=== PATIENT | male | born 1960 | race Caucasian/White ===

== ENCOUNTER → 2020-05-10 15:37 | Outpatient (BNVA) | payer OTHER, SELFPAY | PROVIDERS: PCP Internal Medicine; Visit Provider Hospitalist | DX: J44.9 Chronic obstructive pulmonary disease, unspecified (principal); Z79.899 Other long term (current) drug therapy | CPT/HCPCS: 99214 ==

== ENCOUNTER → 2021-05-29 09:18 | Outpatient (BNVA) | payer OTHER, SELFPAY | PROVIDERS: PCP Internal Medicine; Visit Provider Hospitalist | DX: J45.909 Unspecified asthma, uncomplicated (principal); K21.9 Gastro-esophageal reflux disease without esophagitis; Z87.891 Personal history of nicotine dependence | CPT/HCPCS: 99212 ==

== ENCOUNTER 2022-05-10 10:53 | Outpatient (REF) | payer OTHER, SELFPAY ==
--- NOTE | 2022-05-10 15:05 | PFT_ITS ---
Forced vital capacity 87%, FEV1 88%, FEF25/75 87%, MVV 74%. Post bronchodilator therapy, there is no significant change. Total lung capacity 88%. Residual volume 85%. Diffusion capacity 63% CONCLUSION: Normal pulmonary function test except for slight decrease in MVV and diffusion capacity. No evidence of obstructive or restrictive pulmonary disorder. Decreased MVV, probably due to poor effort or some muscular weakness. Decreased diffusion capacity, may be due to nonspecific factors including technical, nonpulmonary issues such as pulmonary vascular disease. Clinical correlation is recommended. MD ERIK Ya/MODL / [id number]
== END 2022-05-10 10:54 | disposition home or self-care (01) ==
LOC: HO.RESP 10:53
PROVIDERS: Visit Provider Hospitalist
DX: J45.909 Unspecified asthma, uncomplicated (principal)
CPT/HCPCS: 94060; 94727; 94729

== ENCOUNTER → 2022-05-30 11:32 | Outpatient (BNVA) | payer OTHER, SELFPAY | PROVIDERS: PCP Internal Medicine; Visit Provider Hospitalist | DX: J45.909 Unspecified asthma, uncomplicated (principal); R91.8 Other nonspecific abnormal finding of lung field; K21.9 Gastro-esophageal reflux disease without esophagitis | CPT/HCPCS: 99212 ==

== ENCOUNTER 2022-06-13 09:14 | Outpatient (REF) | payer OTHER, SELFPAY ==
--- NOTE | ~2022-06-13 | CT_ITS ---
EXAMINATION: CT CHEST WITHOUT CONTRAST CLINICAL INFORMATION: Abnormal findings of the lung shah. COMPARISON: None TECHNIQUE: Multidetector volumetric CT imaging of the chest was done. Axial MIP volume rendering provided. Sagittal and coronal reformatted images were obtained. This CT examination was performed using dose optimization techniques as appropriate, variously including the following: *Automated exposure control *Adjustment of mA and/or kV according to patient size (this includes techniques or standardized protocols for targeted exams where dose is matched to indication/reason for exam; i.e. extremities or head) *Use of iterative reconstruction technique DLP: 165 mGy-cm FINDINGS: VIDEOGRAPHER: Unremarkable chest. LUNGS: The lungs are well-expanded with 2 mm peripheral subpleural right upper lobe nodule, axial image 278/7, 2 mm subpleural nodule left lower lobe, axial image 389/7, and new 3 mm nodule right lower lobe with linear atelectatic changes on axial image 378/7. No additional lung nodules are seen. Minimal dependent atelectatic changes are seen in both lung bases. MEDIASTINUM: The thyroid lobes are symmetric and normal. The central trachea and the bronchi are widely patent. Heart size and the great vessels are normal caliber. No abnormal size mediastinal or hilar lymph nodes seen. CORONARY ARTERY CALCIFICATION: Trace coronary artery calcifications are seen. PLEURA: There is no pleural effusion. No pleural mass or thickening. AXILLA: No lymphadenopathy. UPPER ABDOMEN: Visualized liver, spleen, pancreas and bilateral adrenal glands are unremarkable. No radiopaque gallstone seen. OSSEOUS STRUCTURES: There is a healing fracture with sclerosis left lateral 7th rib CT/CT chest wo IV con IMPRESSION: 1. Bilateral subpleural nodules. There is a new 3 mm pulmonary nodule in right lower lobe. 2. Minimal dependent atelectatic changes seen in both lung bases. Fleischner guidelines were followed.
== END 2022-06-13 09:15 | disposition home or self-care (01) ==
LOC: HO.CT 09:14
PROVIDERS: Visit Provider Hospitalist
DX: R91.8 Other nonspecific abnormal finding of lung field (principal)
CPT/HCPCS: 71250

== ENCOUNTER 2023-03-20 10:05 | Outpatient (AMB) | payer OTHER, SELFPAY ==
[2023-03-20 10:09] VITALS: BP 122/70; PULSE 81; O2SAT 99; BMI 25.9
--- NOTE | 2023-03-20 10:09 | A.OFFVIS_ITS ---
Intake Vital Signs 03/20/23 10:09 Height 5 ft 10 in Weight 180 lb 12.465 oz BMI 25.9 BP 122/70 Blood Pressure Location Lt brachial Position Sitting Pulse 81 Pulse Source Pulse Oximeter Pulse Oximetry (%) 99 Oxygen Delivery Method Room Air Intake Visit Reasons: productive cough Allergies No Known Allergies Allergy (Verified 03/20/23 10:13) Medication List - Last Reconciled 03/20/23 by Randee Ronquillo LPN albuterol sulfate 90 mcg/actuation 2 puffs PO Q6H PRN azithromycin 500 mg PO DAILY 5 days azithromycin For 250 mg dose pack: take 500 mg today (day 1), then 250 mg for 4 days (days 2-5) PO budesonide mg inhalation BID cetirizine 10 mg PO DAILY famotidine 20 mg PO DAILY Flovent HFA 220 mcg/actuation (fluticasone propionate) 2 puffs inhalation BID NS ibuprofen mg PO tamsulosin 0.4 mg PO DAILY HPI productive cough HPI Details Stevenson is a pleasant 62 year old male, former smoker, followed for asthma, GERD, allergic rhinitis and pulmonary nodules. He is well controlled on Flovent, Zyrtec, Pepcid and albuterol PRN. Previously on suppressive therapy for chronic bronchitis and recurrent pneumonia. Today he presents for an acute visit. He initially started with nasal congestion about three days ago and now with worsening productive cough and green sputum. He denies any shortness of breath, chest tightness or wheezing. He denies any hemoptysis or chest pain. He denies any fever, chills or known sick contacts. Of note, he was recently admitted to [facility] with cellulitis s/p cat bite and treated with IV antibiotics x 4 days then discharged on 10 day course of Augmentin early February. [facility] Medical History (Updated 05/30/22 @ 12:00 by Neal Molina MD) Allergic rhinitis Asthma Asthma-COPD overlap syndrome Bronchitis GERD (gastroesophageal reflux disease) Pulmonary nodules Family History (Updated 05/10/20 @ 20:55 by Neal Molina MD) Other Asthma Social History (Updated 03/20/23 @ 10:18 by Randee Ronquillo LPN) Patient Tobacco Use Status: Former Tobacco user Tobacco use type: Cigarette Years Smoked: 10 years Smoked in Last 30 Days: No Review of Systems Const Denies chills, Denies excessive sweating, Denies fever(s), Denies headache(s) and Denies night sweats Eyes Denies dry eyes, Denies irritation and Denies itchy eyes ENT Reports Normal hearing present, Denies headache(s), Denies nasal congestion, Denies nasal discharge, Denies post nasal drip and Denies sore throat Card Denies chest pain, Denies chest pain at rest, Denies chest pain with activity, Denies claudication, Denies leg edema, Denies dyspnea, Denies dyspnea on exertion, Denies orthopnea and Denies paroxysmal nocturnal dyspnea Resp Denies chest congestion, Denies cough, Denies excessive phlegm production, Denies pain on inspiration, Denies pain with cough, Denies dyspnea, Denies dyspnea on exertion, Denies stridor and Denies wheezing Musc Denies myalgias Neuro Reports Normal hearing present and Denies headache(s) Endo Denies excessive sweating Seymour/Lymph Denies lymphadenopathy Aller/Immun Denies itchy eyes, Denies seasonal rhinorrhea and Denies wheezing Physical Exam Vital Signs: Last Vital Signs Pulse 81 03/20/23 10:09 BP 122/70 03/20/23 10:09 Pulse Ox 99 03/20/23 10:09 Oxygen Delivery Method Room Air 03/20/23 10:09 BMI result Body Mass Index 25.9 Const General: cooperative, healthy appearing, comfortable, no acute distress, well developed and alert Orientation/consciousness: patient oriented x3 Limitations: no limitations HEENT Head: Yes normal to inspection, Yes normocephalic and Yes atraumatic Ears: hearing grossly normal bilaterally and external ears normal Eyes General: appearance normal, both eyes and all related structures Eyelids: Yes eyelids normal Sclerae: sclerae normal EOM: EOMs intact bilaterally Neck Neck: Yes normal visual inspection and Yes no lymphadenopathy Lymphatic: no lymphadenopathy noted Chest Chest palpation & inspection: normal inspection of the chest Resp Effort & Inspection: normal respiratory effort, able to speak in complete sentences, no audible wheezes, no cough, no stridor, not tachypneic, no tripod positioning and no use of accessory muscles Auscultation: rhonchi throughout and wheezes (faint) expiratory wheezes Cardio Jugular venous distension: no JVD Rate: regular rate Rhythm: regular rhythm Skin Other: warm, dry General skin exam: no rashes or lesions noted Neuro General: patient oriented x3 Cranial nerves: Yes Normal hearing present Cognition (Neuro): normal cognition Gait exam (Neuro): Normal gait present Extrem General: Yes normal to inspection, Yes capillary refill normal, Yes no clubbing, cyanosis or edema and Yes no pedal edema Psych Appearance: grossly normal and well kempt Speech and movement: Normal speech and movement present and Clear speech present Affect: normal affect Attitude: cooperative Thought process: Normal thought process present Thought content: Normal thought content present Insight: Good insight present (Psych) Judgement: Good judgement present (Psych) Assessment & Plan Assessment & Plan (1) Asthma: Code(s): J45.909 - Unspecified asthma, uncomplicated (2) Bronchitis: Code(s): J40 - Bronchitis, not specified as acute or chronic Plan Will treat bronchitic symptoms with azithromycin. He did have faint wheezing on exam but declines prednisone at this time. He is aware to contact the office if symptoms do not improve or seek emergent care if they worsen. Will have PFT and chest CT in the fall then follow up with Dr. Molina to review results. All questions were answered and patient is in agreement of plan. Medications: Refilled azithromycin 500 mg PO DAILY 5 days 5 tabs 0RF albuterol sulfate 90 mcg/actuation 2 puffs PO Q6H PRN 1 ea 3RF wheezing Coding Level of Care Code Est Pt Level 3 (66313) Diagnoses Asthma J45.909 Bronchitis J40
== END 2023-03-20 11:49 | disposition home or self-care (01) ==
PROVIDERS: PCP Internal Medicine; Visit Provider Nurse Practitioner Family
DX: J45.909 Unspecified asthma, uncomplicated (principal)
CPT/HCPCS: 99213

== ENCOUNTER → 2023-03-20 10:05 | Outpatient (BNVA) | payer OTHER, SELFPAY | PROVIDERS: PCP Internal Medicine; Visit Provider Nurse Practitioner Family | DX: J40 Bronchitis, not specified as acute or chronic (principal); R91.8 Other nonspecific abnormal finding of lung field; Z87.891 Personal history of nicotine dependence | CPT/HCPCS: 99212 ==

== ENCOUNTER 2023-05-31 11:25 | Outpatient (REF) | payer OTHER, SELFPAY ==
--- NOTE | 2023-05-31 12:21 | PFT_ITS ---
INDICATION: Asthma. SPIROMETRY: The FEV1 to FVC pre-bronchodilator 69%, post-bronchodilator 71% with an FEV1 of 3.18 L, which is 111% predicted and FVC of 4.49 L, which is 108% of predicted. There was a trend response to bronchodilators noted. The maximum voluntary ventilation is 86% predicted. LUNG VOLUMES: Total lung capacity 77% predicted with residual volume of 58% predicted. DIFFUSION CAPACITY: DLCO 73% predicted. COMPARISONS: None available. INTERPRETATION: There appears to be partially reversible obstructive ventilator defect consistent with diagnosis of asthma. There is trend response to bronchodilators noted, and there is normal maximum voluntary ventilation. Lung volumes also demonstrate restrictive ventilatory defect consistent with mild restrictive lung disease. In addition, there is mild diffusion impairment, clinical correlation warranted. Neal Molina MD MR/MODL / [id number]
== END 2023-05-31 11:26 | disposition home or self-care (01) ==
LOC: HO.RESP 11:25
PROVIDERS: PCP Internal Medicine; Visit Provider Hospitalist
DX: J45.909 Unspecified asthma, uncomplicated (principal)
CPT/HCPCS: 94010; 94727; 94729

== ENCOUNTER → 2023-05-31 12:21 | Outpatient (BNV) | payer OTHER, SELFPAY | PROVIDERS: PCP Internal Medicine; Visit Provider Hospitalist | DX: J45.909 Unspecified asthma, uncomplicated (principal) | CPT/HCPCS: 94060; 94727; 94729 ==

== ENCOUNTER 2023-06-12 11:12 | Outpatient (REF) | payer OTHER, SELFPAY ==
--- NOTE | ~2023-06-12 | CT_ITS ---
EXAMINATION: CT CHEST WITHOUT CONTRAST CLINICAL INFORMATION: Abnormal findings lung field COMPARISON: Previous, most recent, 06/13/2022 TECHNIQUE: Multidetector volumetric CT imaging of the chest was done. Axial MIP volume rendering provided. Sagittal and coronal reformatted images were obtained. This CT examination was performed using dose optimization techniques as appropriate, variously including the following: *Automated exposure control *Adjustment of mA and/or kV according to patient size (this includes techniques or standardized protocols for targeted exams where dose is matched to indication/reason for exam; i.e. 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 Other than small groundglass focus in the lateral left upper lobe, 5:263, the lungs are clear. No consolidations. 2 mm RUL subpleural nodule, 5:252, 2 mm LLL subpleural, 5:339 are unchanged. 3 mm RLL nodule with linear atelectasis, 5:344 is stable. MEDIASTINUM: Unremarkable thyroid. No pathologic lymphadenopathy. Nonenlarged heart. No pericardial effusion. Nonaneurysmal aorta with atherosclerotic calcifications. Nonenlarged pulmonary arteries. CORONARY ARTERY CALCIFICATION: Mild. PLEURA: There is no pleural effusion. No pleural mass or thickening. AXILLA: No lymphadenopathy. UPPER ABDOMEN: Unremarkable. OSSEOUS STRUCTURES: Old left seventh lateral rib fracture. Unchanged right-sided T5 sclerotic focus. CT/CT chest wo IV con IMPRESSION: Stable lung nodules. No new or enlarging lesions.
== END 2023-06-12 11:13 | disposition home or self-care (01) ==
LOC: HO.CT 11:12
PROVIDERS: PCP Internal Medicine; Visit Provider Hospitalist
DX: R91.8 Other nonspecific abnormal finding of lung field (principal)
CPT/HCPCS: 71250

== ENCOUNTER 2023-07-15 09:40 | Emergency (ER) | payer OTHER, SELFPAY ==
--- NOTE | ~2023-07-15 | XR_ITS ---
EXAMINATION: XR TIBIA AND FIBULA, RIGHT CLINICAL INFORMATION: Right lower leg laceration. COMPARISON: None available. TECHNIQUE: AP and lateral views of the right tibia and fibula were obtained. FINDINGS: Alignment is anatomic. No displaced fracture or dislocation. No periosteal reaction or bone destruction. No retained radiopaque foreign body. There is mild diffuse subcutaneous edema and soft tissue swelling. XR/XR tibia fibula RT 2V IMPRESSION: Finding suggestive of cellulitis. No underlying bone destruction.
[2023-07-15 10:01] VITALS: BP 137/91; PULSE 64; RESP 20; TEMP 36.6; O2SAT 95; BMI 26.4
--- NOTE | 2023-07-15 11:09 | ED.GENADULT ---
HPI - General Adult General Chief complaint: Extremity Injury, Lower Stated complaint: R leg infected wound Time Seen by Provider: 07/15/23 10:47 Source: patient Mode of arrival: ambulatory Limitations: no limitations History of Present Illness HPI narrative: 62 yold male with pmh of asthma , GERD, pulmonary nodules presents to the ED for right leg area of redness after being cut by a chair. Patient denies any calf pain, chest pain, shortness of breath, recent long travel, or recent surgery. Patient denies any history of diabetes. Related Data Home Medications Medication Instructions Recorded Confirmed ibuprofen 600 mg tablet mg PO 05/02/20 03/20/23 tamsulosin 0.4 mg capsule 0.4 mg PO DAILY 05/02/20 03/20/23 budesonide 0.5 mg/2 mL suspension mg inhalation BID 05/10/20 05/10/20 for nebulization Previous Rx's Medication Instructions Recorded azithromycin 250 mg tablet See Rx Instructions PO .COMPLEX #6 11/22/22 tabs cetirizine 10 mg tablet 10 mg PO DAILY #90 tabs 01/14/23 Ventolin HFA 90 mcg/actuation 2 puff PO Q6H PRN wheezing #18 03/20/23 aerosol inhaler (albuterol sulfate) grams azithromycin 500 mg tablet 500 mg PO DAILY 5 days #5 tabs 03/20/23 Flovent HFA 220 mcg/actuation 2 puff inhalation BID #36 ea 05/16/23 aerosol inhaler (fluticasone propionate) famotidine 20 mg tablet 20 mg PO DAILY #90 tabs 06/06/23 cephalexin 500 mg capsule 500 mg PO QID 7 days #28 caps 07/15/23 doxycycline hyclate 100 mg capsule 100 mg PO BID 7 days #14 caps 07/15/23 Allergies Allergy/AdvReac Type Severity Reaction Status Date / Time No Known Allergies Allergy Verified 07/15/23 10:05 Review of Systems Review of Systems: Right leg laceration with surrounding erythema Yes all other systems are reviewed and are negative [facility] Past Medical History Medical History (Updated 07/15/23 @ 12:47 by KULWINDER Altman) Pulmonary nodules GERD (gastroesophageal reflux disease) Allergic rhinitis Asthma Bronchitis Asthma-COPD overlap syndrome Family History Family History (Updated 05/10/20 @ 20:55 by Neal Molina MD) Other Asthma Social History Social History (Updated 03/20/23 @ 10:18 by Randee Ronquillo LPN) Patient Tobacco Use Status: Former Tobacco user Tobacco use type: Cigarette Years Smoked: 10 years Advance Directives: No Advance Directives Information Provided: Yes Physical Exam ED Vital Signs: Vital Signs - 24 hr 07/15/23 10:01 07/15/23 13:12 Temperature 97.8 F 97.9 F Pulse Rate 64 56 Respiratory Rate 20 15 Blood Pressure 137/91 H 146/81 H Pulse Oximetry 95 95 Oxygen Delivery Method Room Air Room Air BMI result Body Mass Index 26.4 Const General: cooperative, healthy appearing, comfortable and no acute distress Orientation/consciousness: oriented to place, oriented to time and patient oriented x3 HENMT Head: Yes normal to inspection, Yes No palpable skull fracture present, Yes normocephalic and Yes atraumatic Eyes General: appearance normal, both eyes and all related structures Neck Neck: Yes normal visual inspection, Yes full ROM, Yes no lymphadenopathy, Yes no meningeal signs, Yes trachea midline, Yes supple, No anterior neck swelling and No tender Chest Chest palpation & inspection: normal inspection of the chest and normal palpation of entire chest wall Resp Effort & Inspection: normal respiratory effort and able to speak in complete sentences Auscultation: clear to auscultation bilaterally Cardio Jugular venous distension: no JVD Heart sounds: S1 normal heart sound present and S2 normal heart sound present GI Inspection: Yes normal to inspection and No abdominal wall ecchymosis Palpation (GI): Soft to palpation, not firm, nontender, no guarding and not rigid General: Yes no CVA tenderness Back/Spine/Pelvis Back: no CVA tenderness and No back tenderness Skin Other: skin tear Neuro General: oriented to place, oriented to time, patient oriented x3, gait normal, tone normal, moves all extremities, Normal light touch and pain sensation, no meningeal signs, no focal motor deficits, CN's II-XI intact bilaterally and normal sensation to monofilament Extrem Other: skin tear laceration from trauma caused by chair with surrounding erythema and some small amount of yellow drainage / serosanguineous. Negative for leg pain, calf pain, or leg swelling. Motor/ neuro/vascular exam intact General: Yes normal to inspection and Yes full ROM Psych Appearance: grossly normal, well kempt and not disheveled Medical Decision Making Medical Decision Making MDM Narrative: 62-year-old male history of asthma, bronchitis, pulmonary nodule presents to the ED for area of erythema and slight discharge around skin tear that was caused by being cut by a chair a couple days ago. Patient states up-to-date with Tdap. Vital signs stable. X-ray ordered. Most likely patient will be need antibiotics. 12:42pm: x-ray negative for osteomyelitis. X-ray show signs of cellulitis. marker used to [place] around the area of cellulitis patient informed to return to the ED immediately if redness spread beyond marker. Patient also informed to return to ED if there is any leg swelling, worsening pain, red streaks, gangrene black discoloration, profuse discharge, calf pain, chest pain, shortness of breath, or any other concerning symptoms. Not suspecting DVT. Patient up-to-date with Tdap Differential Diagnosis Differential Diagnoses: The differential diagnosis associated with the presentation includes (Cellulitis, osteomylitis, DVT, fracture) Admission/Observation Consideration of admission/observation: Escalation of care including admission/observation considered Independent Interpretation I performed an independent interpretation of an: Plain X-Ray Radiology Impression Discussion of test interpretation with radiology: I have reviewed the radiologist's reading. Independent Historian Clinical information obtained from an independent historian. History obtained from or confirmed by: Spouse External Record Review External record reviewed: Other (Prior ED visits) Prescription Management I considered prescription management with: Antibiotic Discharge Plan Discharge Clinical Impression: Cellulitis Patient Disposition: Home, Self-Care Instructions: Cellulitis (ED), Warm Compress or Soak (ED) Additional Instructions: return to the ED immediately for any increased swelling, red streaks, worsening redness, bluish black discoloration, profuse discharge, fever, chills, calf pain, chest pain, shortness of breath, or any other concerning symptoms. Please follow-up with the primary care provider. Prescriptions: New cephalexin 500 mg capsule 500 mg PO QID 7 Days Qty: 28 0RF doxycycline hyclate 100 mg capsule 100 mg PO BID 7 Days Qty: 14 0RF No Action azithromycin 250 mg tablet See Rx Instructions PO .COMPLEX Qty: 6 0RF Rx Instructions: For 250 mg dose pack: take 500 mg today (day 1), then 250 mg for 4 days (days 2-5) PO cetirizine 10 mg tablet 10 mg PO DAILY Qty: 90 1RF albuterol sulfate [Ventolin HFA] 90 mcg/actuation HFA aerosol inhaler 2 puff PO Q6H PRN (Reason: wheezing) Qty: 18 3RF Flovent HFA 220 mcg/actuation HFA aerosol inhaler 2 puff inhalation BID Qty: 36 1RF famotidine 20 mg tablet 20 mg PO DAILY Qty: 90 1RF ibuprofen 600 mg tablet PO tamsulosin 0.4 mg capsule 0.4 mg PO DAILY budesonide 0.5 mg/2 mL suspension for nebulization inhalation BID azithromycin 500 mg tablet 500 mg PO DAILY 5 Days Qty: 5 0RF Stand Alone Forms: Work/School Release Interventions: ED Discharge Assessment Last Done: 07/15/23 13:13 Discharge Date/Time: 07/15/23 13:16 Print Language: Citizen [place]
[2023-07-15 13:12] VITALS: BP 146/81; PULSE 56; RESP 15; TEMP 36.6; O2SAT 95
== END 2023-07-15 13:16 | disposition home or self-care (01) ==
PROVIDERS: Emergency Provider Emergency Medicine; PCP Internal Medicine
DX: L03.115 Cellulitis of right lower limb (principal)
CPT/HCPCS: 73590; 99283

== ENCOUNTER 2023-07-17 11:18 | Emergency (ER) | payer OTHER, SELFPAY ==
--- NOTE | ~2023-07-17 | US_ITS ---
EXAMINATION: US VENOUS ULTRASOUND WITH DOPPLER LOWER EXTREMITY, RIGHT CLINICAL INFORMATION: Right lower extremity edema. COMPARISON: None available. TECHNIQUE: Ultrasound of the deep veins is performed from the hip to the calf with compression sonography and color and pulse Doppler assessment. Spectral analysis with color-flow imaging is performed. FINDINGS: There is normal venous compression and respiratory variation and augmented flow. The visualized common femoral vein, superficial femoral vein, profunda femoral vein, popliteal vein, and the trifurcation region shows no evidence of deep venous thrombosis. There is no significant popliteal fossa cyst. If the patient's symptoms persist, followup ultrasound in 5 days 7 days might be of value to exclude proximal propagation from a non-visualized calf vein. US/US venous duplex LE RT IMPRESSION: No DVT demonstrated in the right lower extremity.
--- NOTE | 2023-07-17 11:31 | ED_ITS ---
HPI - Extremity Injury (Lower) General Chief Complaint: General Medical Stated Complaint: Infection right leg Time Seen by Provider: 07/17/23 11:54 Source: patient Mode of arrival: ambulatory Limitations: no limitations History of Present Illness HPI Narrative: Patient is a 62 year old assigned male at with a history of asthma presenting to the emergency department today with possible worsening right lower extremity cellulitis. Patient states that he was seen 2 days ago and diagnosed with right lower leg cellulitis with a purple marker around the redness. Patient states that he was concerned the redness had gone past the line so he returned to the ED. Patient states that he is taking his antibiotic as prescribed. Patient denies any dizziness, lightheadedness, abdominal pain, nausea, vomiting, fever, chills, blurry vision, double vision, loss of vision, chest pain, difficulty breathing, shortness of breath, back pain, night sweats, pain with urination, increased urinary frequency, increased urinary urgency, blood in his urine or stool, syncope or a near syncopal episode, recent trauma or falls, bowel incontinence, bladder incontinence, bowel retention, bladder retention, or any other complaints at this time. Relieving factors: nothing Exacerbating factors: nothing Other symptoms: none Related Data Home Medications Medication Instructions Recorded Confirmed ibuprofen 600 mg tablet mg PO 05/02/20 03/20/23 tamsulosin 0.4 mg capsule 0.4 mg PO DAILY 05/02/20 03/20/23 budesonide 0.5 mg/2 mL suspension mg inhalation BID 05/10/20 05/10/20 for nebulization Previous Rx's Medication Instructions Recorded azithromycin 250 mg tablet See Rx Instructions PO .COMPLEX #6 11/22/22 tabs cetirizine 10 mg tablet 10 mg PO DAILY #90 tabs 01/14/23 Ventolin HFA 90 mcg/actuation 2 puff PO Q6H PRN wheezing #18 03/20/23 aerosol inhaler (albuterol sulfate) grams azithromycin 500 mg tablet 500 mg PO DAILY 5 days #5 tabs 03/20/23 Flovent HFA 220 mcg/actuation 2 puff inhalation BID #36 ea 05/16/23 aerosol inhaler (fluticasone propionate) famotidine 20 mg tablet 20 mg PO DAILY #90 tabs 06/06/23 cephalexin 500 mg capsule 500 mg PO QID 7 days #28 caps 07/15/23 doxycycline hyclate 100 mg capsule 100 mg PO BID 7 days #14 [facility] 07/15/23 Allergies Allergy/AdvReac Type Severity Reaction Status Date / Time No Known Allergies Allergy Verified 07/17/23 11:32 Review of Systems 2 Constitutional: Constitutional: Reports no additional constitutional complaints, Denies chills, Denies fever(s) and Denies night sweats Eyes: Eyes: Reports no additional eye complaints, Denies blurry vision, Denies change in vision, Denies diplopia, Denies eye discharge, Denies loss of vision and Denies eye pain ENT: Denies dizziness Cardiovascular: Cardiovascular: Reports no additional cardiovascular complaints, Denies chest pain, Denies lightheadedness, Denies Loss of Consciousness and Denies dyspnea Respiratory: Respiratory: Reports no additional respiratory complaints and Denies dyspnea Gastrointestinal: Gastrointestinal: Reports no additional gastrointestinal complaints, Denies abdominal pain, Denies melena, Denies hematochezia, Denies change in bowel habits and Denies change in stool character Genitourinary: Genitourinary: Reports no additional male genitourinary complaints, Denies hematuria, Denies oliguria, Denies difficulty urinating, Denies dysuria, Denies urinary frequency, Denies urinary hesitancy, Denies urinary incontinence and Denies urinary urgency Musculoskeletal: Musculoskeletal: Reports no additional musculoskeletal complaints, Denies numbness and Denies tingling Comments: right lower leg wound / infection Neurologic: Denies dizziness, Denies loss of vision, Denies numbness and Denies tingling Psychiatric: Psychiatric: Reports no additional psychiatric complaints Endocrine: Endocrine: Reports no additional endocrine complaints Hematologic/Lymphatic: Hematologic/Lymphatic: Reports no additional hematologic/lymphatic complaints Allergic/Immunologic: Allergic/Immunologic: Reports no additional allergic/immunologic complaints [facility] Past Medical History Attestation statement: The following information was validated with the patient. Source: old records reviewed and nursing notes reviewed Medical History Pulmonary nodules GERD (gastroesophageal reflux disease) Allergic rhinitis Asthma Bronchitis Asthma-COPD overlap syndrome Family History Family History Other Asthma Social History Social History (Updated 03/20/23 @ 10:18 by Randee Ronquillo LPN) Alcohol intake: current Patient Tobacco Use Status: Former Tobacco user Tobacco use type: Cigarette Years Smoked: 10 years Smoked in Last 30 Days: No Use of substances other than those prescribed or required for medical reasons: No Advance Directives: No Advance Directives Information Provided: Yes Physical Exam 2 Vital Signs: Vital Signs: Last Vital Signs Temp 97.9 F 07/17/23 11:32 Pulse 74 07/17/23 11:32 Resp 16 07/17/23 12:00 BP 147/98 H 07/17/23 11:32 Pulse Ox 95 07/17/23 11:32 O2 Del Method Room Air 07/17/23 12:00 BMI result Body Mass Index 24.8 Const: General: cooperative, no acute distress, alert and awake Nutritional Appearance: well nourished Orientation/consciousness: patient oriented x3 Limitations: no limitations HEENT: Head: Yes normal to inspection and Yes atraumatic Ears: hearing grossly normal bilaterally and external ears normal General nose exam: Normal external nose present, no nasal discharge noted and no epistaxis Face and sinus: Yes normal facial exam, No abrasion and No laceration Mouth: Normal oral and palatal mucosa present, no drooling and no muffled voice Eyes: General: appearance normal, both eyes and all related structures P eriorbital: periorbital findings normal Eyelids: Yes eyelids normal C onjunctivae: conjunctivae normal Pupils: Equal, round and reactive pupils present EOM: EOMs intact bilaterally Neck: Neck: Yes normal visual inspection, Yes full ROM and Yes no lymphadenopathy Chest: Chest palpation & inspection: normal inspection of the chest Resp: Effort & Inspection: normal respiratory effort and able to speak in complete sentences GI: Inspection: Yes normal to inspection Neuro: General: patient oriented x3 and moves all extremities Cranial nerves: Yes Equal, round and reactive pupils present Cognition (Neuro): n ormal cognition Motor exam (neuro): 5/5 motor strength present throughout Sensory Exam: Normal double simultaneous stimulation for sensation C oordination: [id number] test normal Extrem: Other: small wound to the right anterior lower leg with minimal surrounding erythema and warmth, all erythema is well within the drawn line General: Yes full ROM and Yes capillary refill normal Psych: Appearance: grossly normal Mental Status: mental status grossly normal Affect: normal affect Attitude: cooperative Thought process: N ormal thought process present Thought content: Normal thought content present Insight: Good insight present (Psych) Course Course Course Narrative: RME: 62 yo old male with PMHx of asthma, GERD, pulmonary nodules presents to the ED c/o worsening cellulitis, passing lines created in the ED on 07/15/23. patient was seen and tx in the ED 07/15 for cellulitis, tx w/Doxy & Keflex which he reports compliance. reports mild drainage. Also reports worsening edema. no fevers open wound noted to RLE w/surrounding erythema and slight drainage. +pitting edema. not passing lines created. suspect abx need more time, not failed outpatient Labs, Venous duplex US ordered Full HPI, ROS and PE to be performed by primary ED provider. Medical Decision Making Medical Decision Making [facility] Narrative: Patient is a 62 year old assigned male at with a history of asthma presenting to the emergency department today for possible worsening right lower extremity cellulitis. Patient's physical exam was as noted in the physical exam portion of this note. Patient's blood work was unremarkable. Patient's RLE US showed no acute process. I explained my physical exam findings as well as all test results to the patient. I answered all questions asked by the patient. I stressed the importance of the patient taking his medication as prescribed. I stressed the importance of the patient following up with his primary care provider and the wound center. I stressed the importance of the patient returning to the emergency department immediately if his symptoms were to worsen or if he were to develop any dizziness, shortness of breath, difficulty breathing, chest pain, blurry vision, loss of vision, nausea, vomiting, abdominal pain, fever, chills, back pain, or any other complaints. Patient verbalized agreement and understanding with this treatment plan and discharge. Differential Diagnosis Differential Diagnoses: The differential diagnosis associated with the presentation includes Cellulitis DVT Admission/Observation Consideration of admission/observation: Escalation of care including admission/observation considered Patient would have been admitted to the hospital had his work up had any findings where hospital admission was appropriate and his clinical presentation warranted hospital admission. Lab Data [facility] Lab Attestation statement: I reviewed the patient's lab results. My interpretation of these studies and their corresponding values is that they are grossly normal. 07/17/23 12:50 07/17/23 12:50 Labs: Lab Results 07/17/23 Range/Units 12:50 WBC 5.0 (4.8-10.8) X10*3/uL RBC 5.26 (4.60-5.80) X10*6/uL Hgb 17.4 (14.0-18.0) g/dl Hct 51.4 (42.0-52.0) % MCV 97.7 (80.0-98.0) fL MCH 33.1 H (27.0-33.0) pg MCHC 33.9 (31.0-36.0) g/dl RDW 13.2 (11.0-16.0) % Plt Count 237 (160-400) X10*3/uL MPV 11.0 (9.4-12.4) fL Immature Gran % (Auto) 1.0 H (0.0-0.4) % Neut % (Auto) 61.8 (45-73) % Lymph % (Auto) 18.1 L (20-40) % Pierce % (Auto) 16.7 H (2-11) % Eos % (Auto) 1.8 (0-4) % Baso % (Auto) 0.6 (0-2) % Lymph # (Auto) 0.9 L (1.2-4.9) X10*3/uL Pierce # (Auto) 0.8 (0.1-1.2) X10*3/uL Eos # (Auto) 0.1 (0.0-0.4) X10*3/uL Baso # (Auto) 0.0 (0.0-0.2) X10*3/uL Abs Immat Gran (auto) 0.05 H (0.00-0.03) X10*3/uL Absolute Neuts (auto) 3.1 (2.0-8.3) x10*3/uL Absolute Nucleated RBC 0.000 (0.0-0.012) X10*3/uL Nucleated RBC % (auto) 0.0 (0.0-0.2) /100WBC Sodium 140 (135-145) mmol/L Potassium 3.9 (3.3-5.1) mmol/L Chloride 107 (96-108) mmol/L Carbon Dioxide 26 (22-29) mmol/L Anion Gap 11 L (12-20) BUN 10 (9-16) mg/dL Creatinine 0.76 (0.5-1.4) mg/dL Estim Creat Clear Calc 101.3 Estimated GFR > 60 Random Glucose 96 (60-115) mg/dL Calcium 9.7 (8.4-10.2) mg/dL Total Bilirubin 0.5 (0.0-1.0) mg/dL AST 26 (5-37) U/L ALT 26 (0-40) U/L Alkaline Phosphatase 49 (39-117) U/L C-Reactive Protein 0.79 H (< or = 0.50) mg/dL Total Protein 7.1 (6.5-8.0) g/dL Albumin 3.8 (3.5-5.0) g/dL Independent Interpretation I performed an independent interpretation of an: Ultrasound Interpretation: My interpretation is in agreement with the radiologist's impression of this imaging study. - EXAMINATION: US VENOUS ULTRASOUND WITH DOPPLER LOWER EXTREMITY, RIGHT CLINICAL INFORMATION: Right lower extremity edema. COMPARISON: None available. TECHNIQUE: Ultrasound of the deep veins is performed from the hip to the calf with compression sonography and color and pulse Doppler assessment. Spectral analysis with color-flow imaging is performed. FINDINGS: There is normal venous compression and respiratory variation and augmented flow. The visualized common femoral vein, superficial femoral vein, profunda femoral vein, popliteal vein, and the trifurcation region shows no evidence of deep venous thrombosis. There is no significant popliteal fossa cyst. If the patient's symptoms persist, followup ultrasound in 5 days 7 days might be of value to exclude proximal propagation from a non-visualized calf vein. US/US venous duplex LE RT IMPRESSION: No DVT demonstrated in the right lower extremity. Dictated By: Nando Acevedo Signed By: Electronically signed by Nando Acevedo 07/17/23 1440 Radiology Impression Discussion of test interpretation with radiology: I have reviewed the radiologist's reading. Prescription Management I considered prescription management with: Antibiotic (patient already on antibiotics, recommended continuing them.) Discharge Plan Discharge Clinical Impression: Cellulitis Patient Disposition: Home, Self-Care Instructions: Cellulitis (DC) Additional Instructions: Continue taking your antibiotics as prescribed. Follow up with the wound center. Follow up with your primary care provider. Return to the emergency department immediately if your symptoms worsen or if you develop any dizziness, shortness of breath, difficulty breathing, chest pain, blurry vision, loss of vision, nausea, vomiting, abdominal pain, fever, chills, back pain, or any other complaints. Prescriptions: No Action azithromycin 250 mg tablet See Rx Instructions PO .COMPLEX Qty: 6 0RF Rx Instructions: For 250 mg dose pack: take 500 mg today (day 1), then 250 mg for 4 days (days 2-5) PO cetirizine 10 mg tablet 10 mg PO DAILY Qty: 90 1RF albuterol sulfate [Ventolin HFA] 90 mcg/actuation HFA aerosol inhaler 2 puff PO Q6H PRN (Reason: wheezing) Qty: 18 3RF Flovent HFA 220 mcg/actuation HFA aerosol inhaler 2 puff inhalation BID Qty: 36 1RF famotidine 20 mg tablet 20 mg PO DAILY Qty: 90 1RF cephalexin 500 mg capsule 500 mg PO QID 7 Days Qty: 28 0RF doxycycline hyclate 100 mg capsule 100 mg PO BID 7 Days Qty: 14 0RF ibuprofen 600 mg tablet PO tamsulosin 0.4 mg capsule 0.4 mg PO DAILY budesonide 0.5 mg/2 mL suspension for nebulization inhalation BID azithromycin 500 mg tablet 500 mg PO DAILY 5 Days Qty: 5 0RF Referrals: [facility] [Provider Group] (Call to establish and follow up with the wound center. ) Kee Ray MD [Primary Care Provider] - Interventions: ED Discharge Assessment Last Done: 07/17/23 13:51 Discharge Date/Time: 07/17/23 13:53 Print Language: Greenlandic
[2023-07-17 11:32] VITALS: BP 147/98; PULSE 74; RESP 18; TEMP 36.6; O2SAT 95; BMI 24.8
[2023-07-17 12:00] VITALS: RESP 16
[2023-07-17 13:01] LABS: MANUAL DIFF FLAG NO
[2023-07-17 13:03] LABS: Basophils Percent Auto 0.6 % (0-2); Eosinophils Absolute Auto 0.1 X10*3/uL (0.0-0.4); Eosinophils Percent Auto 1.8 % (0-4); Hematocrit 51.4 % (42.0-52.0); Hemoglobin 17.4 g/dl (14.0-18.0); Imm Gran Abs Auto 0.05 X10*3/uL (0.00-0.03); Lymphocytes Absolute Auto 0.9 X10*3/uL (1.2-4.9); Lymphocytes Percent Auto 18.1 % (20-40); Mean Corpuscular HGB Conc 33.9 g/dl (31.0-36.0); Mean Corpuscular Hemoglobin 33.1 pg (27.0-33.0); Mean Corpuscular Volume 97.7 fL (80.0-98.0); Monocytes Absolute Auto 0.8 X10*3/uL (0.1-1.2); Monocytes Percent Auto 16.7 % (2-11); Neutrophils Absolute Auto 3.1 x10*3/uL (2.0-8.3); Neutrophils Percent Auto 61.8 % (45-73); Platelet Count 237 X10*3/uL (160-400); Red Blood Count 5.26 X10*6/uL (4.60-5.80); Red Cell Distribution Width 13.2 % (11.0-16.0)
[2023-07-17 13:17] LABS: Alanine Aminotransferase 26 U/L (0-40); Albumin Level 3.8 g/dL (3.5-5.0); Alkaline Phosphatase 49 U/L (39-117); Anion Gap 11 (12-20); Aspartate Amino Transferase 26 U/L (5-37); Bilirubin Total 0.5 mg/dL (0.0-1.0); Blood Urea Nitrogen 10 mg/dL (9-16); C Reactive Protein 0.79 mg/dL (< or = 0.50); Calcium 9.7 mg/dL (8.4-10.2); Carbon Dioxide 26 mmol/L (22-29); Chloride 107 mmol/L (96-108); Creatinine Clr Calc Pharmacy 101.3; Estimated Glomerular Filt Rate > 60; Glucose Random 96 mg/dL (60-115); Potassium 3.9 mmol/L (3.3-5.1); Sodium 140 mmol/L (135-145); Total Protein 7.1 g/dL (6.5-8.0)
== END 2023-07-17 13:53 | disposition home or self-care (01) ==
PROVIDERS: Physician Assistant; Physician Assistant Medical; Emergency Provider Student in an Organized Health Care Education/Training Program; PCP Internal Medicine
DX: L03.115 Cellulitis of right lower limb (principal); R60.0 Localized edema
CPT/HCPCS: 36415; 80053; 85025; 86140; 87040; 93971; 99284

== ENCOUNTER 2025-01-14 13:49 | Outpatient (AMB) | payer MEDICARE, MEDICAID, SELFPAY ==
[2025-01-14 13:52] VITALS: BP 124/64; PULSE 82; O2SAT 93
--- NOTE | 2025-01-14 13:52 | A.OFFVIS_ITS ---
Vital Signs 01/14/25 13:52 Height 5 ft 10 in BMI Reason not done Patient refused/unable BP 124/64 Blood Pressure Location Lt brachial Position Sitting Pulse 82 Pulse Source Pulse Oximeter Pulse Oximetry (%) 93 Oxygen Delivery Method Room Air Intake Visit Reasons: asthma/copd It Project Coordinator Required: No Accompanied by: Self / Same As Patient Allergies No Known Allergies Allergy (Verified 01/14/25 13:55) HPI Comments Details: The patient is a 64-year-old gentleman with a known history of chronic bronc hitis and asthma COPD overlap syndrome. Overall the patient has been doing very well after being placed on the suppression therapy with macrolides. he was able to wean off for the most part. He continues on the Flovent HFA that is the only inhaler that is really been able to be effective his respiratory symptoms and also his laryngeal inflammation. Recently, he did follow-up with Allergy and cerda d positive allergy testing. At this time he will start allergy shots. the patient is also concerned about his scan and significant bruising that occurs very easily. He understands that is likely from his chronic steroid use in the past. 05/29/2021 the patient is here for pulmonary follow-up visit. Overall the patient has been feeling a lot better. His chest is no longer readily he does not have significant chest congestion. He has not require prednisone now more than a year. He completed the treatment for the Pseudomonas and subsequent after that he was placed on azithromycin 3 times a week. He was also able to wean off the azithromycin. He does continue Flovent the Flovent has been affecting beneficial for many years. 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 The patient was referred to Allergy. He did start allergy shots in the also be working for him. He feels like it took about a year but he is find seen the affects of the allergy shots at this time. He continues to [place] on a regular basis. His respiratory status has not impede him from performing which is reassuring. 05/30/2022 the patient is here for pulmonary follow-up visit. Overall he con tinues to do very well. He has been responding well to the allergy shots. Continues on the Flovent which she takes daily. He has not required any azithromycin which is reassuring. Overall his respiratory status is dramatically better. Did undergo pulmonary function studies demonstrating no obstructive nor restrictive ventilatory defects the only finding was slight mild decrease in the diffusing capacity. Overall pretty decent lung mechanics. In addition to that we did go back and review his imaging studies. Back in [address] he [address] scan demonstrating multiple pulmonary nodules. The nodules were subcentimeter and more solid nodules. the patient will need a repeat CT scan to make sure that nodules have not progressed in size. If the nodules are stable then no additional follow-up is warranted. 01/14/2025 the patient is here for a pulmonary follow-up visit. The patient overall has been doing okay. He tried multiple inhalers but finally the fluticasone propionate seemed to work well for him. Did not irritate his voice or his lungs as much. Recently he was sick with a respiratory illness and he did have some antibiotics that he can take at home and he took him a did feel significantly better after developing a chest congestion and bronchitis. 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 We did review his last CT scan of the chest that was done back in 2022 demonstrating a few pulmonary nodules and then some other larger subsolid ground-glass nodular densities. Measuring around 8 mm in size. Will go ahead and repeat his CAT scan at this time since he has been more than a year. Otherwise the patient is doing well will follow-up in a year's time if the patient has any issues or any other concerning symptoms he will call for an earlier assessment. [facility] Medical History Pulmonary nodules GERD (gastroesophageal reflux disease) Allergic rhinitis Asthma Bronchitis Asthma-COPD overlap syndrome Family History Other Asthma Social History Alcohol intake: current Patient Tobacco Use Status: Former Tobacco user Tobacco use type: Cigarette Years Smoked: 10 years Review of Systems Const Denies night sweats ENT Reports change in voice, Denies lip swelling, Denies mouth pain, Denies nasal congestion, Denies nasal discharge and Denies tongue swelling Card Denies chest pain Resp Reports cough GI Denies abdominal pain Musc Denies no additional complaints Neuro Denies Neuro-related abnormal movements Psych Denies no additional complaints [place]/Lymph Denies easy bleeding and Denies lymphadenopathy Aller/Immun Denies lip swelling and Denies tongue swelling Physical Exam Vital Signs: Last Vital Signs Pulse 82 01/14/25 13:52 BP 124/64 01/14/25 13:52 Pulse Ox 93 01/14/25 13:52 Oxygen Delivery Method Room Air 01/14/25 13:52 Const General: alert HEENT General nose exam: Abnormal external nose present and Nasal discharge present Eyes Pupils: Equal, round and reactive pupils present Neck Neck: Yes normal visual inspection, Yes full ROM and Yes no lymphadenopathy Chest Chest palpation & inspection: normal inspection of the chest Resp Auscultation: clear to auscultation bilaterally, no crackles, no rales, no rhonchi and no wheezes Cardio Rate: regular rate Rhythm: regular rhythm Heart sounds: S1 normal heart sound present and S2 normal heart sound present GI Palpation (GI): Soft to palpation and nontender Auscultation: normal bowel sounds General: Yes no CVA tenderness Back/Spine/Pelvis Back: no CVA tenderness Skin General skin exam: rashes and/or lesions noted Neuro Cranial nerves: Yes Equal, round and reactive pupils present Assessment & Plan Assessment & Plan (1) Asthma: Code(s): J45.909 - Unspecified asthma, uncomplicated Category: Medical Qualifiers: Asthma severity: moderate Asthma persistence: persistent Asthma complication type: uncomplicated Qualified Code(s): J45.40 - Moderate persistent asthma, uncomplicated (2) Allergic rhinitis: Code(s): J30.9 - Allergic rhinitis, unspecified Category: Medical Qualifiers: Allergic rhinitis trigger: unspecified Allergic rhinitis seasonality: unspecified Qualified Code(s): J30.9 - Allergic rhinitis, unspecified (3) GERD (gastroesophageal reflux disease): Code(s): K21.9 - Gastro-esophageal reflux disease without esophagitis Category: Medical Qualifiers: Esophagitis presence: without esophagitis Qualified Code(s): K21.9 - Gastro-esophageal reflux disease without esophagitis (4) Pulmonary nodules: Code(s): R91.8 - Other nonspecific abnormal finding of lung field Category: Medical Plan Continue Flovent OTIS as needed Reflux diet and pepcid CT chest to address pulmonary nodules Continue Allergy shots Continue allergy therapy F/U 1 year Orders: Orders CT chest wo IV con Today R91.8 - Other nonspecific abnormal finding of lung field Medications: New amoxicillin-pot clavulanate 875-125 mg 1 tab PO BID 10 days 20 tabs 0RF Refilled fluticasone propionate 220 mcg/actuation 2 puffs inhalation BID 30 days 12 grams 11RF NS J44.9 - Chronic obstructive pulmonary disease, unspecified Coding Level of Care Code Est Pt Level 4 (19538) Complex EM visit Add On G2211 Diagnoses Moderate persistent asthma without complication J45.40 Asthma severity: moderate Asthma persistence: persistent Asthma complication type: uncomplicated Allergic rhinitis, unspecified seasonality, unspecified trigger J30.9 Allergic rhinitis trigger: unspecified Allergic rhinitis seasonality: unspecified Gastroesophageal reflux disease without esophagitis K21.9 Esophagitis presence: without esophagitis Pulmonary nodules R91.8 Time Spent (min) 18
--- OUTSIDE RECORDS SUMMARY | 2025-01-14 16:14 | XMS_ITS | Clinical Summary ---
Author Organization [facility] Address [address] [place] [address] Care Team Providers Care Stagecraft Professor Name Role Phone Unavailable Primary Care Provider Unavailabl e Source Comments PLEASE NOTE, if this patient is a minor, it may be UNLAWFUL to discuss sensitive information that is contained in these records (such as FAMILY PLANNING, MENTAL HEALTH or SUBSTANCE ABUSE) with the minor patient's parent or other person without the patient's specific authorization.[facility] Immunizations Immunization Administration Dates Next Due Moderna COVID-19 Vaccine, re d cap blue label, 12+ Primary Series 06/27/2021,12/12/2020,11/14/2020 Social History Tobacco Use Types Packs/Day Years Used Date Smoking Tobacco: Never Assessed Social Connections Answer Date Recorded Connectedness 0 06/30/2024 Financial Resource Strain Answer Date R ecorded Financial Resource Strain 0 2023 Stress Answer Date Recorded Stress 0 06/30/2024 Physical Activity Answer Date Recorded Physical Activity 0 06/30/2024 Food Insecurity Answer Date Recorded Food 0 06/30/2024 Transportation Needs Answer Date Record ed Transportation 0 06/30/2024 Housing Stability Answer Date Recorded Housing 0 06/30/2024 Safety and Environment Answer Date Eamon rded Safety 0 06/30/2024 Utilities Answer Date Recorded Utilities 0 06/30/2024 Employment Answer Date Recorded Stress 0 06/30/2024 Sex and Gender Information Value Date Recorded Sex Assigned at Not on file Legal Sex Male 11:43 AM PDT Gender Identity Not on file Sexual Orientation Not on file Plan of Treatment Health Maintenance Due Date Last Done Comments Diabetes Screening 1960 Hepatitis C Screening 1958 Lipid Screening 1958 Tobacco Screening 1958 Hypertension Screening (#1) 1976 CT Colonography 2003 Colonoscopy 2003 Colorectal Cancer Screening 2003 FIT/gFOBT 2003 Fecal DNA 2003 Flexible Sigmoidoscopy 2003 Imm-Zoster, Recombinant (1 of 2) 2008 Imm-Pneumococcal 65+ (2 of 2 - PCV) 11/19/201811/19 Abdominal Aortic Aneurysm Screening 2023 Falls Prevention 2023 Ruv-OSTVF-13 (4 - season) 2024 06/27/2021, 12/12/2020, 11/14/2020 Imm-Influenza (#1) 2024 2016 Alcohol and Drug Screen 08/05/2024 Depression Annual Screen 08/05/2024 Imm-DTaP/Tdap/Td (3 - Td or Tdap) 11/26/2030 021, 09/19/2015 Insurance [facility] [employer] Member Subscriber Plan / Payer (Ef fective 2020-Present) Name:Stevenson Conley Relation to Subscriber:Self Name:Stevenson Conley Payer ID:[id number] Group ID:[id number] Type:Medicaid Address: [facility] [address] [place] [address]
== END 2025-01-14 14:27 | disposition home or self-care (01) ==
LOC: HO.HPS 13:49
PROVIDERS: PCP Internal Medicine; Visit Provider Hospitalist
DX: J45.40 Moderate persistent asthma, uncomplicated (principal); J30.9 Allergic rhinitis, unspecified; K21.9 Gastro-esophageal reflux disease without esophagitis; R91.8 Other nonspecific abnormal finding of lung field
CPT/HCPCS: 99214; G2211

== ENCOUNTER → 2025-01-14 13:49 | Outpatient (BNVA) | payer MEDICARE, MEDICAID, SELFPAY | PROVIDERS: PCP Internal Medicine; Visit Provider Hospitalist | DX: J45.40 Moderate persistent asthma, uncomplicated (principal); J30.9 Allergic rhinitis, unspecified; R91.8 Other nonspecific abnormal finding of lung field; K21.9 Gastro-esophageal reflux disease without esophagitis | CPT/HCPCS: 99212 ==

== ENCOUNTER 2025-04-09 07:40 | Outpatient (REF) | payer MEDICARE, MEDICAID, SELFPAY ==
--- NOTE | ~2025-04-09 | CT_ITS ---
CLINICAL HISTORY: R91.8 - Other nonspecific abnormal finding of lung field CT chest without contrast Comparison: CT/REG/SR - CT CHEST WITHOUT IV CONTRAST - 06/12/23 11:[address]/REG/SR - CT CHEST WITHOUT IV CONTRAST - 06/13/22 09:29 EST Findings: The heart size is normal. Moderate coronary calcification. The visualized thyroid and mediastinum are unremarkable. No chest wall lesions or axillary adenopathy. Decompressed esophagus. No dense consolidation, pleural effusion or pneumothorax. A triangular subpleural right upper lobe nodule is stable and benign. Additional 2 mm subpleural left lower lobe nodule on image 98 is stable. No new or enlarging nodules or masses. The upper abdomen is unremarkable. The bones are intact. Old sternal fracture. IMPRESSION: 1. Stable benign subpleural right upper and lower lobe pulmonary nodules. No new pulmonary nodules or masses. No acute cardiopulmonary disease. This document has been electronically signed by: Madonna Golden MD on 04/10/2025 09:09:23
--- OUTSIDE RECORDS SUMMARY | 2025-04-09 07:43 | XMS_ITS | Clinical Summary ---
Author Organization [facility] Address [address] [place] [address] Care Team Providers Care Vehicle Window Tinter Name Role Phone Donaldo Rodriguez MD Primary Care Provider Allergies No known active allergies Medications EPINEPHrine (EpiPen 2-Johan) 0.3 mg/0.3 mL injection CARRY ON IMMUNOTHERAPY DAYS. USE NEEDED FOR ANAPHYLAXIS. 11/06/19 24 Active fluorouraciL (EFUDEX) 5 % cream Apply sparingly twice a day Mon thru Fri x 4 weeks 03/29/20 20 Active albuterol HFA (PROAIR HFA ; PROVENTIL HFA ; VENTOLIN HFA) 90 mcg/actuation inhaler INHALE 2 PUFFS INTO THE LUNGS EVERY 4 HOURS NEEDED FOR COUGHING OR WHEEZING 03/23/20 19 Active fluticasone HFA (FLOVENT HFA) 220 mcg/actuation inhaler Inhale 1 puff by mouth 2 (two) times a day. Rinse mouth with water after use to reduce aftertaste and incidence of candidiasis. Do not swallow. Active acetaminophen (TYLENOL) 500 mg tablet Take 2 tablets (1,000 mg total) by mouth every 6 (six) hours if needed for mild pain. 60 tablet 08/14/19 25 Active tamsulosin (FLOMAX) 0.4 mg 24 hr capsule TAKE 1 CAPSULE BY MOUTH DAILY. TAKE 30 MINS AFTER SAME MEAL EVERY DAY. 90 capsule 1 09/01/19 25 Active famotidine (PEPCID) 20 mg tablet Take 1 tablet (20 mg total) by mouth 1 (one) time each day. 90 tablet 1 11/03/19 25 Active furosemide (LASIX) 20 mg tablet Take 1 tablet (20 mg total) by mouth 1 (one) time each day. 30 each 01/30/20 25 026 Active cetirizine (ZyrTEC) 10 mg tablet TAKE 1 TABLET BY MOUTH EVERY DAY 90 tablet 1 03/22/20 25 Active cetirizine (ZyrTEC) 10 mg tablet TAKE 1 TABLET BY MOUTH EVERY DAY 90 tablet 1 09/01/19 25 025 Discontinued Active Problems Problem Noted Date Diagnosed Date Cellulitis of left lower extremity 02/10/2023 Overview (06/30/2024): Last Assessment & Plan: Developed cellultitis after a cat scratch Suspect underlying PVD as less than robust DP pulses and slow to resolve infection Started on Unasyn in the ED and this was continued. CT leg and Doppler done. CT showed edema but no fluid collection or gas. Doppler showed no DVT Photos from yesterday compared to exam today leg looks improved Plan continue Unasyn, elevation Chronic bronchitis (CMS/HCC V24, CMS/HCC V28) Allergic rhinitis 07/10/2018 Condyloma acuminatum 04/16/2018 Overview (06/30/2024): Condyloma acuminatum 04/22 scrotum Dyslipidemia 11/19/2017 Overview (06/30/2024): LDL cholesterol 28, 12/01/2015 Varicose veins of both lower extremities 018 Asthma 06/20/2016 Eczema 09/15/2013 Vocal cord nodule 09/15/2013 Abdominal wall abscess 09/15/2013 Overview (06/30/2024): I&D x2, [facility] Encounters Date Type Department Care Team Description 03/18/2025 12:21 PM EDT - 03/18/2025 3:50 PM EDT Emergency [facility] Emergency [address] [place] [address] Acute deep vein thrombosis (DVT) of both lower extremities, unspecified vein (CMS/HCC V24, CMS/HCC V28) (Primary Dx); Bilateral lower extremity edema; Venous insufficiency of both lower extremities Discharge Disposition: Home or Self Care 03/18/2025 7:00 AM EDT Ancillary Procedure [facility] [address] [place] [address] Varicose veins of both lower extremities, unspecified whether complicated; Leg swelling 03/18/2025 Telephone Adult Medicine [address] [address] Donaldo Rodriguez MD 01/29/2025 3:00 PM EDT Office Visit Adult [address] [address] Richie Mazariegos PA Varicose veins of both lower extremities, unspecified whether complicated (Primary Dx); Leg swelling 01/29/2025 Telephone Adult Medicine [address] [address] Cristine Gibbons MA from Last 3 Months Immunizations Name Administration Dates Next Due Influenza trivalent, 0.5mL, preservative free (Fluarix; FluLaval; Fluzone) ages 6mo and older (Afluria) 3 years and older 2016 Moderna SARS-CoV-2 COVID-19, mRNA, LNP-S, preservative free 06/27/2021,12/12/2020,11/14/2020 Pneumococcal polysaccharide 23 valent (Pneumovax 23) 2yo and older 11/19/2017 Td Tetanus diptheria (Tdvax) 7yo and older 11/26 Tdap Tetanus diptheria acell ular pertussis (Boostrix; Adacel) 7yo and older 09/19/2015 Surgical History Surgery Date Site/Laterality Comments OTHER SURGICAL HISTORY 1984 PROCEDURE: ---- OTHER ----; COMMENT: Excision of vocal cord nodule OTHER SURGICAL HISTORY 2007 PROCEDURE: ABSCESS, SOFT TISSUE DEBRIDEMENT; COMMENT: abdominal abscess MRSA OTHER SURGICAL HISTORY PROCEDURE: HISTORICAL MELANOMA COLONOSCOPY VEIN LIGATION AND STRIPPING HERNIA REPAIR Medical History Medical History Date Comments Eczema 09/15/2013 DX:Eczema Vocal cord nodule 09/15/2013 DX:Vocal cord nodule Abdominal wall abscess 09/15/2013 DX:Abdomi nal wall abscess; COMMENT: I&D x2, [facility] Actinic keratosis 03/27/2016 DX:Actinic ker atosis History of basal cell carcinoma 03/27/2016 DX:History of basal cell carcinoma; COMMENT: BCC 03/20 right chest (infiltrative) History of squamous cell car cinoma of skin 10/26/2015 DX:History of squamous cell carcinoma of skin; COMMENT: SCC 03/20 left chest (? Superficial invasion) 10/18 chest (moderately differentiated, invasive) History of MRSA infection 09/19/2015 DX:His tory of MRSA infection Asthma 06/20/2016 DX:Asthma History of actinic keratoses 03/27/2016 DX: History of actinic keratoses; COMMENT: Actinic keratosis 03/20 left [facility] Vocal cord nodule Family History Medical History Relation Name Comments COPD Father No Known Problems Maternal Grandfather No Known Problems Maternal Grandmother Thyroid disease Mother heart troubl e, back trouble, , cirrhosis Nicotine Dependence Paternal Grandfather No Known Problems Paternal Grandmother Thyroid disease Sister Relation Name Status Comments Father (Age 84) Maternal Grandfather Maternal Grandmother Mother Paternal Grandfather Paternal Grandmother Sister Alive Social History Tobacco Use Types Packs/Day Years Used Date Smoking Tobacco: Former Cigarettes Q uit: 08/05/2002 Smokeless Tobacco: Former Tobacco Cessation:Counseling Given: Not Answered Alcohol Use Standard Drinks/Week Comments Yes 3.3 (1 standard drink = 0.6 oz p ure alcohol) Interpersonal Safety Answer Date Record ed Physical Abuse 08/14/2024 Verbal Abuse 08/14/2024 Sex and Gender Information Value Date Recorded Sex Assigned at Male 07/21/2024 10:39 AM EST Legal Sex Male 6:31 PM EST Gender Identity Male 07/21/2024 10:39 AM EST Sexual Orientation Straight 07/21/2024 10 :39 AM EST Obstetrics History Last Filed Vital Signs Vital Sign Reading Time Taken Comments Blood Pressure 133/71 03/18/2025 3:17 PM EDT Pulse 65 03/18/2025 3:17 PM EDT Temperature 36.5 C (97.7 F) 03/18/2025 3:17 PM EDT Respiratory Rate 14 03/18/2025 3:17 PM EDT Oxygen Saturation 96% 03/18/2025 3:17 PM EDT Inhaled Oxygen Concentration - - Weight 78 kg (172 lb) 03/18/2025 11:12 AM EDT Height 177.8 cm (5' 10 ) 03/18/2025 11:12 AM EDT Body Mass Index 24.68 03/18/2025 11:12 AM EDT Plan of Treatment Upcoming Encounters Date Type Department Care Team (Late st Contact Info) Description 05/04/2025 11:15 AM EDT Office Visit Adult Medicine [facility] [address] [place] [address] Radha Monroy PA [address] [place] [address] Health Maintenance Due Date Last Done Comments Zoster Vaccines (1 of 2) 1977 RSV Immunization Adult Patients (1 - Risk 60-74 years 1-dose series) 2018 Pneumococcal Vaccine: 50+ Years (2 of 2 - PCV) 11/19/2018 11/19/2017 Social Influencers of Health Screening 07/14/2022 Medicare Annual Wellness Visit 01/14/2025 01/15/2024 COVID-19 Vaccine ( season) 2025 04/16/2022, 12/06/2021, 06/27/2021, Additional history exists Influenza Vaccine (#1) 2025 05/25/2022, 2016 Falls Risk Assessment 08/14/2025 08/14/2024, 024 Cholesterol Screening (Lipid Panel) 01/14/2029 01/15/2024, 01/15/2024 DTaP,Tdap,and Td Vaccines (3 - Td or Tdap) 11/26/2030 11/26/2020, 09/19/2015 Colorectal Cancer Screening: Colonoscopy 05/20/2034 05/20/2024 Hepatitis C Screening Completed 12/01/2015 Abdominal Aortic Aneurysm (AAA) Screen Completed 02/20/2024, 02/20/2024 Depression Screening Completed 11/01/2024, 01/15/20 HIB Vaccines Aged Out No longer eligi ble based on patient's age to complete this topic HPV Vaccines Aged Out No longer eligi ble based on patient's age to complete this topic Hepatitis A Vaccines Aged Out No long er eligible based on patient's age to complete this topic Hepatitis B Vaccines Aged Out No long er eligible based on patient's age to complete this topic IPV Vaccines Aged Out No longer eligi ble based on patient's age to complete this topic MMR Vaccines Aged Out No longer eligi ble based on patient's age to complete this topic Meningococcal ACWY Vaccine Aged Out N o longer eligible based on patient's age to complete this topic Meningococcal B Vaccine Aged Out No l onger eligible based on patient's age to complete this topic RSV Immunization Patients Under 20 months Aged Out No longer eligible based on patient's age to complete this topic Varicella Vaccines Aged Out No longer eligible based on patient's age to complete this topic Medical Devices Implanted Type Area Rounding Machine Operator Device Identifier Shelf Expiration Date Model / Serial / Lot Mesh Surg 3d Right Xlg 6.7x4.8 - [id number] - [id number] Implanted:Qty: 1 on 08/14/2024 by Reji Colvin DO at [facility] Mesh Sling Implants Right: Abdomen CR BARD - DAVOL DIV 10/30/2028 [id number] / [id number] / [id number] Procedures Procedure Name Priority Date/Time Associated Diagnosis Comments ECG ANNOTATED 03/19/2025 ECG ANNOTATED 03/19/2025 CT HEAD WO CONTRAST STAT 03/18/2025 2 :38 PM EDT XR CHEST 2 VIEWS STAT 03/18/2025 2:00 PM EDT VAS US DUPLEX LOWER EXT VENOUS BILAT STAT 03/18/2025 1:48 PM EDT Acute deep vein thrombosis (DVT) of both lower extremities, unspecified vein (CMS/HCC V24, CMS/HCC V28) TROPONIN I HIGH SENSITIVITY Timed 03/18/2025 1:15 PM EDT ECG 12-LEAD STAT 03/18/2025 12:58 PM EDT CBC WITH AUTO DIFFERENTIAL STAT 03/18/2025 10:50 AM EDT B-TYPE NATRIURETIC PEPTIDE STAT 03/18/2025 10:50 AM EDT MAGNESIUM STAT 03/18/2025 10:50 AM EDT LIPASE STAT 03/18/2025 10:50 AM EDT COMPREHENSIVE METABOLIC PANEL STAT 03/18/2025 10:50 AM EDT CBC AND DIFFERENTIAL STAT 03/18/2025 10:50 AM EDT TROPONIN I HIGH SENSITIVITY Timed 03/18/2025 10:50 AM EDT ECG 12-LEAD STAT 03/18/2025 10:46 AM EDT VAS US DUPLEX LOWER EXT VENOUS INSUFFICIENCY BILATERAL Routine 03/18/2025 7:52 AM EDT Varicose veins of both lower extremities, unspecified whether complicated Leg swelling COLONOSCOPY Routine 05/20/2024 ABDOMINAL AORTIC ANEURYSM SCRREN Routine 02/20/2024 DEPRESSION SCREENING Routine 01/15/2024 FALLS RISK ASSESSMENT Routine 01/15/2024 LIPID PANEL Routine 01/15/2024 HEPATITIS C SCREENING Routine 12/01/2015 from Last 3 Months or Most Recently Relevant to Health Maintenance Results * ECG-Annotated (03/19/2025) Only the most recent of2 resultswithin the time period is included. us Provider Onbase MD ECG ORDERABLES Final Result * CT Head wo Contrast (03/18/2025 2:38 PM EDT) Anatomical Region Laterality Modality Head and Neck Computed Tomogra phy 03/18/2025 3:04 PM EDT Impressions 03/18/2025 3:05 PM EDT No evidence of acute intracranial process on noncontrast head CT. Mild atrophy and age-related changes. -------- FINAL REPORT -------- Dictated By: Flavio Pedersen Dictated Date: 03/18/2025 15:04 ET Assigned Physician: Flavio Pedersen Reviewed and Electronically Signed By: Flavio Pedersen Signed Date: 03/18/2025 15:05 ET Workstation ID: [id number] Transcribed By: Self Edit Transcribed Date: 03/18/2025 15:04 ET Narrative 03/18/2025 3:05 PM EDT INDICATION: Dizziness Technique: Axial images were obtained from the skull base to the vertex without contrast enhancement. Coronal and sagittal reformats obtained. Scanner: Kinematixpeed 64 slice VCT Dose reduction technique: ASIR (Adaptive statistical iterative reconstruction) Dose: total exam DLP 808 mGY per cm Comparison: No prior studies available for comparison. FINDINGS: Intracranial contents: No acute intracranial hemorrhage, midline shift or mass-effect. The ventricles, sulci, sylvian fissures and basilar cisterns are symmetrically enlarged most consistent with atrophy. Mild periventricular white matter changes are most consistent with small vessel ischemic disease. There are no abnormal intra or extra-axial fluid collections. Bony structures/soft tissues: Within normal limits for the patient's age. Sinuses: paranasal sinuses are clear. Procedure Note Flavio Pedersen MD - 03/18/2025 INDICATION: Dizziness Technique: Axial images were obtained from the skull base to the vertexwithout contrast enhancement. Coronal and sagittal reformats obtained. Scanner: GE Auto Mutepeed 64 slice VCT Dose reduction technique: ASIR (Adaptive statistical iterativereconstruction) Dose: total exam DLP 808 mGY per cm Comparison: No prior studies available for comparison. FINDINGS: Intracranial contents: No acute intracranial hemorrhage, midline shift ormass- effect. The ventricles, sulci, sylvian fissures and basilar cisternsare symmetrically enlarged most consistent with atrophy. Mildperiventricular white matter changes are most consistent with small vesselischemic disease. There are no abnormal intra or extra-axial fluidcollections. Bony structures/soft tissues: Within normal limits for the patient'jerica. Sinuses: paranasal sinuses are clear. IMPRESSION: No evidence of acute intracranial process on noncontrast head CT. Mild atrophy and age-related changes. -------- FINAL REPORT -------- Dictated By: Flavio Pedersen Dictated Date: 03/18/2025 15:04 ET Assigned Physician: Flavio Pedersen Reviewed and Electronically Signed By: Flavio Pedersen Signed Date: 03/18/2025 15:05 ET Workstation ID: [id number] Transcribed By: Self Edit Transcribed Date: 03/18/2025 15:04 ET us Jason MIRAMONTES IMG CT PROCEDURES Final Resu lt * XR Chest 2 Views (03/18/2025 2:00 PM EDT) Anatomical Region Laterality Modality Body Radiographic Cathy ging 03/18/2025 2:14 PM EDT Impressions 03/18/2025 2:15 PM EDT No evidence of active pulmonary disease. [id number] -------- FINAL REPORT -------- Dictated By: Flavio Pedersen Dictated Date: 03/18/2025 14:14 ET Assigned Physician: Flavio Pedersen Reviewed and Electronically Signed By: Flavio Pedersen Signed Date: 03/18/2025 14:15 ET Workstation ID: [id number] Transcribed By: Self Edit Transcribed Date: 03/18/2025 14:14 ET Narrative 03/18/2025 2:15 PM EDT INDICATION: Chest pain FINDINGS: Two views of the chest were obtained. There are no prior studies available for comparison. Lung shah are well inflated without infiltrates or effusions. Cardiomediastinal silhouette is normal in size and shape. Bony structures are within normal limits for the patient's age. Procedure Note Flavio Pedersen MD - 03/18/2025 INDICATION: Chest pain FINDINGS: Two views of the chest were obtained. There are no prior studiesavailable for comparison. Lung shah are well inflated without infiltrates or effusions. Cardiomediastinal silhouette is normal in size and shape. Bony structures are within normal limits for the patient's age. IMPRESSION: No evidence of active pulmonary disease. [id number] -------- FINAL REPORT -------- Dictated By: Flavio Pedersen Dictated Date: 03/18/2025 14:14 ET Assigned Physician: Flavio Pedersen Reviewed and Electronically Signed By: Flavio Pedersen Signed Date: 03/18/2025 14:15 ET Workstation ID: [id number] Transcribed By: Self Edit Transcribed Date: 03/18/2025 14:14 ET us Seda MIRAMONTES IMG XR PROCEDURES Final Result * Vascular US Duplex Lower Extremity Venous Bilateral (03/18/2025 1:48 PM EDT) Anatomical Region Laterality Modality Vascular, Abdomen Ultrasound 03/18/2025 2:15 PM EDT Narrative 03/18/2025 2:16 PM EDT INDICATION: bilateral leg pain and swelling. FINDINGS: A duplex venous ultrasound was performed of both lower extremities. The common femoral, superficial femoral and popliteal veins demonstrate color-flow with augmentation and compressibility. The lesser saphenous veins bilaterally are thrombosed, likely chronic. CONCLUSION: No evidence of deep vein thrombosis in either lower extremity. -------- FINAL REPORT -------- Dictated By: Flavio Pedersen Dictated Date: 03/18/2025 14:15 ET Assigned Physician: Flavio Pedersen Reviewed and Electronically Signed By: Flavio Pedersen Signed Date: 03/18/2025 14:16 ET Workstation ID: [id number] Transcribed By: Self Edit Transcribed Date: 03/18/2025 14:15 ET Procedure Note Flavio Pedersen MD - 03/18/2025 INDICATION: bilateral leg pain and swelling. FINDINGS: A duplex venous ultrasound was performed of both lowerextremities. The common femoral, superficial femoral and popliteal veinsdemonstrate color-flow with augmentation and compressibility. The lesser saphenous veins bilaterally are thrombosed, likely chronic. CONCLUSION: No evidence of deep vein thrombosis in either lower extremity. -------- FINAL REPORT -------- Dictated By: Flavio Pedersen Dictated Date: 03/18/2025 14:15 ET Assigned Physician: Flavio Pedersen Reviewed and Electronically Signed By: Flavio Pedersen Signed Date: 03/18/2025 14:16 ET Workstation ID: [id number] Transcribed By: Self Edit Transcribed Date: 03/18/2025 14:15 ET Jason MIRAMONTES CV VASCULAR PROCEDURES Final Result * Troponin I high sensitivity (03/18/2025 1:15 PM EDT) Only the most recent of2 resultswithin the time period is included. [facility] High Sensitivity Troponin I 4 <=79 ng/L LAB CHEMISTRY METHOD 03/18/2025 2:18 PM EDT [facility] Blood Venous blood specimen / Unknown Venipuncture / Unknown 03/18/2025 1:15 PM EDT 03/18/2025 1:38 PM EDT Narrative [facility] - 03/18/2025 2:18 PM EDT High levels of biotin in samples may falsely decrease hsTroponin values. Use caution when interpreting hsTroponin results in patients taking biotin who exhibit renal impairment (eGFR <60) or in patients taking more than 20 mg/day of biotin. Seda MIRAMONTES LAB BLOOD ORDERABLES Fin al Result [facility] [address] [place] [address], * ECG 12 lead (03/18/2025 12:58 PM EDT) Only the most recent of2 resultswithin the time period is included. [facility] Ventricular Rate ECG 55 BPM GEMUSE Atrial Rate 55 BPM GEMUSE P-R Interval 176 ms GEMUSE QRS Duration 94 ms GEMUSE Q-T Interval 448 ms GEMUSE QTc 428 ms GEMUSE P Wave Levan -9 degrees GEMUSE R Levan 49 degrees GEMUSE T Levan 35 degrees GEMUSE ECG Interpretation Sinus bradycardia When compared with ECG of 18-MAR-2025 10:46, (unconfirmed) No significant change was found Confirmed by HANH FERNANDES ([id number]) on 03/18/2025 7:55:27 PM GEMUSE 03/18/2025 12:5 8 PM EDT 03/18/2025 7:55 PM EDT us Seda MIRAMONTES ECG ORDERABLES Final Re sult GEMUSE * (ABNORMAL) CBC auto differential (03/18/2025 10:50 AM EDT) WBC 5.4 4.8 - 10.8 K/mcL LAB HEMETOLOGY METHOD 03/18/2025 11:36 AM EDT [facility] RBC 4.50 4.50 - 5.50 M/mcL LAB HEMETOLOGY METHOD 03/18/2025 11:36 AM EDT [facility] Hemoglobin 14.9 13.5 - 17.5 g/dL LAB [facility] Hematocrit 43.7 42.0 - 54.0 % LAB HEMETOLOGY METHOD 03/18/2025 11:36 AM EDT [facility] MCV 97.1 79.0 - 98.0 FL LAB HEMETOLOGY METHOD [facility]18[facility]2025 [facility] MCH 33.1(H) 27.0 - 32.0 pcg LAB HEMETOLOGY METHOD [facility]25 [facility] MCHC 34.1 32.0 - 37.0 g/dL LAB HEMETOLOGY METHOD 03/18/2025 11:36 AM EDT [facility] RDW 12.7 11.0 - 15.0 % LAB HEMETOLOGY METHOD 03/18/2025 11:36 AM [facility] Platelets 274 130 - 400 K/mcL LAB HEMETOLOGY METHOD 03/18/2025 11:36 AM [facility] MPV 11.7(H) 7.0 - 11.0 FL LAB HEMETOLOGY METHOD 03/18/2025 11:36 AM [facility] NRBC 0.0 <1.0 % LAB HEMETOLOGY METHOD 03/18/2025 11:36 AM [facility] NRBC Absolute 0.00 <0.10 K/mcL LAB HEMETOLOGY METHOD 03/18/2025 11:36 AM [facility] Neutrophils Relative 62.5 % LAB HEMETOLOGY METHOD 03/18/2025 11:36 AM [facility] Lymphocytes Relative 19.0 % LAB HEMETOLOGY METHOD 03/18/2025 11:36 AM [facility] Monocytes Relative 15.7 % LAB HEMETOLOGY METHOD 03/18/2025 11:36 AM [facility] Eosinophils Relative 1.5 % LAB HEMETOLOGY METHOD 03/18/2025 11:36 AM [facility] Basophils Relative 0.6 % LAB HEMETOLOGY METHOD 03/18/2025 11:36 AM [facility] Immature Granulocytes Relative 0.7 % LAB HEMETOLOGY METHOD 03/18/2025 11:36 AM [facility] Neutrophils Absolute 3.38 1.50 - 7.00 K/mcL LAB HEMETOLOGY METHOD 03/18/2025 11:36 AM [facility] Lymphocytes Absolute 1.03 1.00 - 5.00 K/mcL LAB HEMETOLOGY METHOD 03/18/2025 11:36 AM [facility] Monocytes Absolute 0.85 0.20 - 1.00 K/mcL LAB HEMETOLOGY METHOD 03/18/2025 11:36 AM EDT [facility] Eosinophils Absolute 0.08 0.00 - 0.50 K/mcL LAB HEMETOLOGY METHOD 03/18/2025 11:36 AM EDT [facility] Basophils Absolute 0.03 0.00 - 0.20 K/mcL LAB HEMETOLOGY METHOD 03/18/2025 11:36 AM EDT [facility] Immature Granulocytes Absolute 0.04(H) 0.00 - 0.03 K/mcL LAB HEMETOLOGY METHOD 03/18/2025 11:36 AM EDT [facility] Blood Venous blood specimen / Unknown Venipuncture / Unknown 03/18/2025 10:50 AM EDT 03/18/2025 11:26 AM EDT us Seda MIRAMONTES LAB BLOOD ORDERABLES Fin al Result Performing Organization Address City/[facility]/ZIP Co de Phone Number [facility] [address] [place] [address], * B-type natriuretic peptide (03/18/2025 10:50 AM EDT) BNP 52 <=100 pcg/mL LAB CHEMISTRY METHOD 03/18/2025 12:06 PM EDT [facility] Blood Venous blood specimen / Unknown Venipuncture / Unknown 03/18/2025 10:50 AM EDT 03/18/2025 11:26 AM EDT us Seda MIRAMONTES LAB BLOOD ORDERABLES Fin al Result [facility] [address] [place] [address], [place] [phone] * Magnesium (03/18/2025 10:50 AM EDT) Pathologist [facility] Magnesium 2.1 1.9 - 2.6 mg/dL LAB CHEMISTRY METHOD 03/18/2025 1:25 PM EDT [facility] Blood Venous blood specimen / Unknown Venipuncture / Unknown 03/18/2025 10:50 AM EDT 03/18/2025 11:26 AM EDT Seda [place] LAB BLOOD ORDERABLES Fin al Result Performing Organization Address City/[facility]/ZIP Co de Phone Number [facility] [address] [place] [address], [place] [phone] * Lipase (03/18/2025 10:50 AM EDT) [facility] Lipase 37 13 - 75 unit/L LAB CHEMISTRY METHOD 03/18/2025 1:25 PM EDT [facility] Blood Venous blood specimen / Unknown Venipuncture / Unknown 03/18/2025 10:50 AM EDT 03/18/2025 11:26 AM EDT Seda MIRAMONTES LAB BLOOD ORDERABLES Fin al Result Performing Organization Address [facility]/ZIP Co de Phone Number [facility] [address] [place] [address], [place] [phone] * (ABNORMAL) Comprehensive metabolic panel (03/18/2025 10:50 AM EDT) [facility] Sodium 138 133 - 145 mmol/L LAB CHEMISTRY METHOD 03/18/2025 1:25 PM EDT [facility] Potassium 4.0 3.5 - 5.5 mmol/L LAB CHEMISTRY METHOD 03/18/2025 1:25 PM EDT [facility] Chloride 107 96 - 110 mmol/L LAB CHEMISTRY METHOD 03/18/2025 1:25 PM EDT [facility] CO2 27 21 - 32 mmol/L LAB CHEMISTRY METHOD 03/18/2025 1:25 PM [facility] Anion Gap 4 3 - 11 LAB CHEMISTRY METHOD 03/18/2025 1:25 PM [facility] Glucose 80 70 - 100 mg/dL LAB CHEMISTRY METHOD 03/18/2025 1:25 PM [facility] BUN 8 5 - 25 mg/dL LAB CHEMISTRY METHOD 03/18/2025 1:25 PM [facility] Creatinine 0.69(L) 0.70 - 1.30 mg/dL LAB CHEMISTRY METHOD 03/18/2025 1:25 PM [facility] eGFR 102 >=60 mL/min/1. 73m2 LAB CHEMISTRY METHOD 03/18/2025 1:25 PM [facility] Comment:Calculation based on the Chronic Kidney Disease Epidemiology Collaboration (CKD-EPI) equation refit without adjustment for race. BUN/Creatinine Ratio 11.6 LAB CHEMISTRY METHOD 03/18/2025 1:25 PM [facility] Calcium 9.0 8.5 - 10.5 mg/dL LAB CHEMISTRY METHOD 03/18/2025 1:25 PM [facility] AST (SGOT) 19 10 - 42 unit/L LAB CHEMISTRY METHOD 03/18/2025 1:25 PM [facility] ALT (SGPT) 31 10 - 60 unit/L LAB CHEMISTRY METHOD 03/18/2025 1:25 PM [facility] Alkaline Phosphatase 60 42 - 121 unit/L LAB CHEMISTRY METHOD 03/18/2025 1:25 PM [facility] Total Protein 6.1 6.0 - 8.0 g/dL LAB CHEMISTRY METHOD 03/18/2025 1:25 PM [facility] Albumin 3.3 3.2 - 5.0 g/dL LAB CHEMISTRY METHOD 03/18/2025 1:25 PM [facility] Total Bilirubin 0.5 0.0 - 1.4 mg/dL LAB CHEMISTRY METHOD 03/18/2025 1:25 PM EDT [facility] Blood Venous blood specimen / Unknown Venipuncture / Unknown 03/18/2025 10:50 AM EDT 03/18/2025 11:26 AM EDT us Seda MIRAMONTES LAB BLOOD ORDERABLES Quan al Result [facility] ([facility]) [facility] [address] [place] [address], * Vascular US duplex lower extremity venous insufficiency bilateral (03/18/2025 7:52 AM EDT) Left GSK phil 0.19 cm CV VAS LAB Left GSDC phil 0.24 cm CV VAS LAB Left GSMT phil 0.19 cm CV VAS LAB Left GSPC phil 0.23 cm CV VAS LAB Left GSPT phil 0.22 cm CV VAS LAB Left SFJ Diameter 0.49 cm CV VAS LAB Left SSMC phil 0.27 cm CV VAS LAB Left SSPC phil 0.27 cm CV VAS LAB Right GSK phil 0.23 cm CV VAS LAB Right GSDC phil 0.18 cm CV VAS LAB Right GSMT phil 0.19 cm CV VAS LAB Right GSPC phil 0.19 cm CV VAS LAB Right GSPT phil 0.23 cm CV VAS LAB Right SFJ Diameter 0.46 cm CV VAS LAB Right SSMC phil 0.30 cm CV VAS LAB Right SSPC phil 0.22 cm CV VAS LAB Anatomical Region Laterality Modality Vascular, Abdomen Ultrasound Narrative 03/21/2025 2:39 PM EDT Right: 1. 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 Other than that, no evidence of DVT in the right lower extremity deep venous system. 2. The GSV and SSV has no significant reflux. Left: 1. 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 Other than that, the left lower extremity deep veins are compressible without any evidence of DVT. 2. The GSV and SSV has no significant reflux. Right Lower Venous Non-occlusive thrombus in the small saphenous vein. No evidence of deep vein thrombosis in the common femoral, deep femoral, proximal femoral, mid femoral, distal femoral, popliteal, greater saphenous, posterior tibial and peroneal veins of the right leg. The vessels showed compressibility. Interrogation showed phasic and spontaneous Doppler signals. Right Venous Insufficiency Duplex The exam was performed with the patient in reverse Trendelenburg. Right saphenopopliteal junction was not identified. Left Lower Venous Non-occlusive thrombus in the small saphenous vein. Non-occlusive thrombus in the great saphenous vein starting from upper thigh down to lower calf. No evidence of deep vein thrombosis in the common femoral, deep femoral, proximal femoral, mid femoral, distal femoral, popliteal, posterior tibial and peroneal veins of the left leg. The vessels showed compressibility. Interrogation showed phasic and spontaneous Doppler signals. Left Venous Insufficiency Duplex The exam was performed with the patient in reverse trendelenburg. Left saphenopopliteal junction was not identified. Parts Department Manager Details A juárez scale, color and doppler analysis ultrasound was performed. During the study longitudinal and transverse views were obtained. Continuous wave doppler and pulsed wave doppler was performed. Overall the study quality was good. Result [facility] Richie MIRAMONTES CV VASCULAR PROCEDURES Fi nal Result * Colonoscopy (05/20/2024) [facility] Colonoscopy no interpretation , abstracted Anatomical Region Laterality Modality Other [facility] MAINTENANCE Final Result * Abdominal Aortic Aneurysm Screen (02/20/2024) [facility] Abdominal Aortic Aneurysm (AAA) Screening abstracted Anatomical Region Laterality Modality Other Result [facility] Final Result * Falls Risk Assessment (01/15/2024) [facility] Falls Risk Assessment abstracted Result [facility] [place] [facility] Final Result * Depression Screening (01/15/2024) [facility] Depression Screening abstracted Historical Provider HEALTH MAINTENANCE Final Result * (ABNORMAL) Lipid panel (01/15/2024) LDL/HDL Ratio 7(A) 0 - 4 Triglycerides 139 0 - 150 mg/dL Cholesterol 146 0 - 200 mg/dL HDL 21(A) >=40 mg/dL LDL Cholesterol 98 0 - 100 mg/dL Blood Venous blood specimen / Unknown [facility] Provider LAB BLOOD ORDERABLES Allyson l Result * Hepatitis C Screening (12/01/2015) Hepatitis C Screening abstracted [facility] Provider HEALTH MAINTENANCE Final Result from Last 3 Months or Most Recently Relevant to Health Maintenance Insurance MEDICARE [place]ICAID - [place] Care Teams Vehicle Window Tinter Relationship Specialty Start Date End Date Donaldo Rodriguez MD [address], [place] PCP - General Internal Medicine 10/09/24
--- OUTSIDE RECORDS SUMMARY | 2025-04-09 07:43 | XMS_ITS | Clinical Summary ---
Author Organization [facility] Address [address] [place] [id number] Phone Care Team Providers Care Drum Carrier Name Role Phone Kee Ray MD Primary Care Provider [phone] Allergies No known active allergies Medications tamsulosin (FLOMAX) 0.4 mg Cap Take 0.4 mg by mouth daily. Active fluticasone propionate (FLOVENT HFA) 220 mcg/actuation inhaler Inhale 2 puffs into the lungs 2 (two) times a day. Active cetirizine (ZYRTEC) 10 mg capsule Take 10 mg by mouth daily. Active famotidine (PEPCID) 10 MG tablet Take 10 mg by mouth 2 (two) times a day. Active Active Problems Problem Noted Date Diagnosed Date Cellulitis of left lower extremity 02/10/2023 Assessment & Plan (02/13/2023 3:35 PM EDT): Developed cellultitis after a cat scratch Suspect underlying PVD as less than robust DP pulses and slow to resolve infection Started on Unasyn in the ED and this was continued. CT leg and Doppler done. CT showed edema but no fluid collection or gas. Doppler showed no DVT Photos from yesterday compared to exam today leg looks improved Plan continue Unasyn, elevation Social History Tobacco Use Types Packs/Day Years Used Date Smoking Tobacco: Never Smokeless Tobacco: Never Tobacco Cessation:Counseling Given: Not Answered Alcohol Use Standard Drinks/Week Comments Yes 3 (1 standard drink = 0.6 oz pur e alcohol) occasional Education Answer Date Recorded Are you interested in more education? Not on waqas e 12/01/2022 Are you concerned about learning? Not on file 12/01/2022 No 12/01/2022 No 12/01/2022 Digital Access Answer Date Recorded No 12/30/2022 No 12/30/2022 Reliable internet access at home? Not on file 12/30/2022 Device with a working camera? Not on file Intimate Partner Violence Answer Date R ecorded Are you denied basic needs s uch as food, clothing, or medical care? No 03/06/2023 In the past 12 months have y ou been in a relationship with a person who hurts, threatens, or tries to control you? No 03/06/2023 Are you denied basic needs s uch as food, clothing, or medical care? No 03/06/2023 In the past 12 months have y ou been in a relationship with a person who hurts, threatens, or tries to control you? No 03/06/2023 Sex and Gender Information Value Date Recorded Sex Assigned at Male 08/12/2021 8:32 PM EST Legal Sex Male 7:43 PM EST Gender Identity Male 08/12/2021 8:32 PM EST Sexual Orientation Straight 08/12/2021 8: 32 PM EST Last Filed Vital Signs Vital Sign Reading Time Taken Comments Blood Pressure 123/80 03/06/2023 8:11 PM EDT Pulse 59 03/06/2023 8:11 PM EDT Temperature 36.6 C (97.9 F) 03/06/2023 8:11 PM EDT Respiratory Rate 18 03/06/2023 8:11 PM EDT Oxygen Saturation 95% 03/06/2023 8:11 PM EDT Inhaled Oxygen Concentration - - Weight 77.6 kg (171 lb 1.6 oz) 02/10/2023 11:09 PM EDT Height 177.8 cm (5' 10 ) 02/10/2023 11:09 PM EDT Body Mass Index 24.55 02/10/2023 11:09 PM EDT Plan of Treatment Health Maintenance Due Date Last Done Comments Adult Td,Tdap Booster 1958 LIPID PANEL 1958 DEPRESSION SCREENING 1970 HEPATITIS C SCREENING 1976 COLOGUARD 2003 COLONOSCOPY 2003 COLORECTAL CANCER SCREENING 2003 FIT TEST 2003 FOBT 2003 SIGMOIDOSCOPY 2003 VIRTUAL COLONOSCOPY 2003 PNEUMOCOCCAL VACCINES (50+ years) (1 of 1 - PCV) 2008 ZOSTER VACCINES (1 of 2) 2008 INFLUENZA VACCINE (#1) 2025 05/25/2022 COVID-19 VACCINE (4 - 2024-2 6 season) 2025 06/27/2021, 12/12/2020, 11/14/2020 RSV VACCINE (1 - 1-dose 75+ series) 2033 SMOKING STATUS SCREENING (On ce After 26 Yrs) Completed 03/06/2023 HEPATITIS A VACCINES Aged Out No long er eligible based on patient's age to complete this topic HIB VACCINES Aged Out No longer eligi ble based on patient's age to complete this topic MENINGOCOCCAL VACCINES (ACWY) Aged Out No longer eligible based on patient's age to complete this topic MENINGOCOCCAL VACCINES (B) Aged Out N o longer eligible based on patient's age to complete this topic Medical Devices Not on file Insurance [employer] A[employer] [address] [place], [place] [phone] [facility] [employer] [employer] [address] [place] [address] ALLANCE ACO [facility] [employer] ALLANCE ACO [employer] ALLANCE ACO [employer] ALLANCE ACO Advance Directives For more information, please contact: [phone] (9AM - 5PM Page/[facility]_[employer], Saturday-Saturday) * Full Code (Latest Code Status on File) Date Activated Date Inactivated Comments 02/10/2023 11:50 PM Question Answer Comments Code Status Confirmed With: Patient Care Teams Drum Carrier Relationship Specialty Start Date End Date Kee Ray MD [address] [place] [id number] PCP - General Internal Medicine 08/12/21 Additional Source Comments The information contained in this document represents components of the legal health record. It is not the complete legal health record.[facility]
--- OUTSIDE RECORDS SUMMARY | 2025-04-09 07:43 | XMS_ITS | Encounter Summary ---
Author Organization [facility] Address [address] [place] [address] [place] [address] Phone Care Team Providers Care Soaker Helper Name Role Phone Kee Ray MD Primary Care Provider [phone] Encounter Details Date Type Department Care Team (Late st Contact Info) Description 08/12/2021 Procedure Pass [facility], Ct Scan - [address] [address] Social History Tobacco Use Types Packs/Day Years Used Date Smoking Tobacco: Never Alcohol Use Standard Drinks/Week Comments Yes 0 (1 standard drink = 0.6 oz pur e alcohol) occasional Sex and Gender Information Value Date Recorded Sex Assigned at Male 08/12/2021 8:32 PM EST Legal Sex Male 7:43 PM EST Gender Identity Male 08/12/2021 8:32 PM EST Sexual Orientation Straight 08/12/2021 8: 32 PM EST documented as of this encounter Functional Status * Calculated C-SSRS Risk Score (Lifetime/Recent) Answer Date of Assessment Author No Risk Indicated 08/12/2021 8:31 PM EST Jody Falcon RN * [place] Suicide Severity Rating Scale (Screener/Recent Self-Report) Question Answer Date of Assessment Author 1. Wish to be (Past 1 Month) No 022 8:31 PM EST John Falcon RN 2. Non-Specific Active Suici mark Thoughts (Past 1 Month) No 08/12/2021 8:31 PM EST John Falcon RN 6. Suicidal Behavior (Lifetime) No 8:31 PM John Beltran RN documented as of this encounter Plan of Treatment Not on file documented as of this encounter Visit Diagnoses Not on filedocumented in this encounter Care Teams Soaker Helper Relationship Specialty Start Date End Date Kee Ray MD [address] [place] [address] PCP - General Internal Medicine 08/12/21 documented as of this encounter Additional Source Comments The information contained in this document represents components of the legal health record. It is not the complete legal health record.[facility]
--- OUTSIDE RECORDS SUMMARY | 2025-04-09 07:43 | XMS_ITS ---
Author Name [facility] Organization Unknown Care Team Organization Name Specialty Phone Email Start Date End Da te [facility] DEYA CORTES Primary Care 10/10/2022 03/23/2024 [facility] DEACON Primary Care 08/13/2022 03/23/2024 [facility] Raghavendra Morales Primary Care 06/12/202203/23
--- OUTSIDE RECORDS SUMMARY | 2025-04-09 07:43 | XMS_ITS | Clinical Summary ---
Author Organization [facility] Address [address] [place] [address] Care Team Providers Care Billet Header Name Role Phone Unavailable Primary Care Provider [...] Imm-Zoster, Recombinant (1 of 2) 2008 Imm-Pneumococcal 50+ (2 of 2 - PCV) 11/19/201811/19 Abdominal Aortic Aneurysm Screening 2023 Falls Prevention 2023 Alcohol and Drug Screen 08/05/2024 Depression Annual Screen 08/05/2024 [id number] ( season) 2025 06/27/2021, 12/12/2020, 11/14/2020 Imm-Influenza (#1) 2025 2016 Imm-DTaP/Tdap/Td (3 - Td or Tdap) 11/26/2030 021, 09/19/2015 Insurance [facility] Transpond PLAN Member Subscriber Plan / Payer (Ef fective 2020-Present) Name:Stevenson Conley Relation to Subscriber:Self Name:Stevenson Conley Payer ID:[id number] Group ID:[id number] Type:Medicaid Address: [facility] [address] [place] [address]
--- OUTSIDE RECORDS SUMMARY | 2025-04-09 07:43 | XMS_ITS | Encounter Summary ---
Author Organization [facility] Address [address] [place] [address] Phone Care Team Providers Care American History Teacher Name Role Phone Kee Ray MD Primary Care Provider [phone] Encounter Details Date Type Department Care Team (Late st Contact Info) Description 02/10/2023 Procedure Pass [facility], Ct Scan - [address] [address] Social History Tobacco Use Types Packs/Day Years Used Date Smoking Tobacco: Never Smokeless Tobacco: Never Alcohol Use Standard Drinks/Week Comments Yes 3 [...] with a working camera? Not on file Sex and Gender Information Value Date Recorded Sex Assigned at Male 08/12/2021 8:32 PM EST Legal Sex Male 7:43 PM EST Gender Identity Male 08/12/2021 8:32 PM EST Sexual Orientation Straight 08/12/2021 8: 32 PM EST documented as of this encounter Functional Status * Calculated C-SSRS Risk Score (Lifetime/Recent) Answer Date of Assessment Author No Risk Indicated 02/10/2023 11:17 PM EDT Paula Godinez RN * [place] Suicide Severity Rating Scale (Screener/Recent Self-Report) Question Answer Date of Assessment Author 1. Wish to be (Past 1 Month) No 023 11:17 PM EDT Paula Godinez, RN 2. Non-Specific Active Suici mark Thoughts (Past 1 Month) No 02/10/2023 11:17 PM EDT Paula Godinez, RN 6. Suicidal Behavior (Lifetime) No 3 11:17 PM EDT Paula Godinez, RN documented as of this encounter Plan of Treatment Not on file documented as of this encounter Visit Diagnoses Not on filedocumented in this encounter Care Teams American History Teacher Relationship Specialty Start Date End Date Kee Ray MD [address] [place] [id number] PCP - General Internal Medicine 08/12/21 documented as of this encounter Additional Source Comments The information contained in this document represents components of the legal health record. It is not the complete legal health record.[facility]
--- OUTSIDE RECORDS SUMMARY | 2025-04-09 07:43 | XMS_ITS | Encounter Summary ---
Author Organization [facility] Address [address] [place] [address] [place] [address] Phone Care Team Providers Care Equity Trader Name Role Phone Kee Ray MD Primary Care Provider [phone] Encounter Details Date Type Department Care Team (Late st Contact Info) Description 08/12/2021 Procedure Pass [facility], Ct Scan - [address] [address] Social History Tobacco Use Types Packs/Day Years [...] 8:31 PM EST Jody Falcon RN * [place] Suicide Severity Rating Scale (Screener/Recent Self-Report) Question [...] on filedocumented in this encounter Care Teams Equity Trader Relationship Specialty Start Date End Date Kee Ray MD [address] [place] [address] PCP - General Internal Medicine 08/12/21 documented as of this encounter Additional Source Comments The information contained in this document represents components of the legal health record. It is not the complete legal health record.[facility]
== END 2025-04-09 07:41 | disposition home or self-care (01) ==
LOC: HO.CT 07:40
PROVIDERS: PCP Internal Medicine; Visit Provider Hospitalist
DX: R91.8 Other nonspecific abnormal finding of lung field (principal)
CPT/HCPCS: 71250

== ENCOUNTER → 2025-04-09 07:42 | Outpatient (BNV) | payer MEDICARE, MEDICAID, SELFPAY | PROVIDERS: PCP Internal Medicine; Visit Provider Radiology Diagnostic Radiology | DX: R91.8 Other nonspecific abnormal finding of lung field (principal) | CPT/HCPCS: 71250 ==

== ENCOUNTER 2025-07-23 14:11 | Outpatient (AMB) | payer MEDICARE, MEDICAID, SELFPAY ==
[2025-07-23 14:19] VITALS: BP 130/70; PULSE 77; O2SAT 96; BMI 26.1
--- NOTE | 2025-07-23 14:19 | MHC.OFFVIS ---
Vital Signs 07/23/25 14:19 Height 5 ft 10 in Weight 181 lb 14.102 oz BMI 26.1 BP 130/70 Blood Pressure Location Lt brachial Position Sitting Pulse 77 Pulse Source Pulse Oximeter Pulse Oximetry (%) 96 Oxygen Delivery Method Room Air Intake Visit Reasons: productive cough/wheeze Security Test Engineer Required: No Paid Search Marketing Analyst: Paid Search Marketing Analyst offered & declined Accompanied by: Spouse Allergies No Known Allergies Allergy (Verified 07/23/25 14:22) HPI Comments Details: The patient is a 64-year-old gentleman with a known history of chronic bronchitis and asthma COPD overlap syndrome. Overall the patient has been doing very well after being placed on the suppression therapy with macrolides. he was able to wean off for the most part. He continues on the Flovent HFA that is the only inhaler that is really been able to be effective his respiratory symptoms and also his laryngeal inflammation. Recently, he did follow-up with Allergy and had positive allergy testing. At this time he will start allergy shots. the patient is also concerned about his scan and significant bruising that occurs very easily. He understands that is likely from his chronic steroid use in the past. 05/29/2021 the patient is here for pulmonary follow-up visit. Overall the patient has been feeling a lot better. His chest is no longer readily he does not have significant chest congestion. He has not require prednisone now more than a year. He completed the treatment for the Pseudomonas and subsequent after that he was placed on azithromycin 3 times a week. He was also able to wean off the azithromycin. He does continue Flovent the Flovent has been affecting beneficial for many years. 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 The patient was referred to Allergy. He did start allergy shots in the also be working for him. He feels like it took about a year but he is find seen the affects of the allergy shots at this time. He continues to [place] on a regular basis. His respiratory status has not impede him from performing which is reassuring. 05/30/2022 the patient is here for pulmonary follow-up visit. Overall he continues to do very well. He has been responding well to the allergy shots. Continues on the Flovent which she takes daily. He has not required any azithromycin which is reassuring. Overall his respiratory status is dramatically better. Did undergo pulmonary function studies demonstrating no obstructive nor restrictive ventilatory defects the only finding was slight mild decrease in the diffusing capacity. Overall pretty decent lung mechanics. In addition to that we did go back and review his imaging studies. Back in [address] he [address] scan demonstrating multiple pulmonary nodules. The nodules were subcentimeter and more solid nodules. the patient will need a repeat CT scan to make sure that nodules have not progressed in size. If the nodules are stable then no additional follow-up is warranted. 01/14/2025 the patient is here for a pulmonary follow-up visit. The patient overall has been doing okay. He tried multiple inhalers but finally the fluticasone propionate seemed to work well for him. Did not irritate his voice or his lungs as much. Recently he was sick with a respiratory illness and he did have some antibiotics that he can take at home and he took him a did feel significantly better after developing a chest congestion and bronchitis. 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 We did review his last CT scan of the chest that was done back in 2022 demonstrating a few pulmonary nodules and then some other larger subsolid ground-glass nodular densities. Measuring around 8 mm in size. Will go ahead and repeat his CAT scan at this time since he has been more than a year. Otherwise the patient is doing well will follow-up in a year's time if the patient has any issues or any other concerning symptoms he will call for an earlier assessment. 07/23/2025 the patient is here for pulmonary follow-up visit. The patient overall has been doing fair. He got sick about a week ago. Positive sick contacts. Started developing head cold and then went to the lungs. Significant chest tightness and weakness. The patient has been using his respiratory inhalers. He does not have a nebulizer. He has been struggling. Denies any fevers or chills. The patient does have significant wheezing on exam. I did give him to levo albuterol nebulizer treatments improving his breathing significantly. He is going to start prednisone and also a course of antibiotics. The patient will also be provided a nebulizer and he is going to continue with the nebulizer medicine at home. He will continue using his maintenance respiratory inhalers. He also had a CT scan of the chest that we personally reviewed from April 2025. Pulmonary nodules appear to be stable. Will follow-up in 6 months if any issues arise she can always call for further recommendations. [facility] Medical History Pulmonary nodules GERD (gastroesophageal reflux disease) Allergic rhinitis Asthma Bronchitis Asthma-COPD overlap syndrome Family History Other Asthma Social History Alcohol intake: current Patient Tobacco Use Status: Former Tobacco user Tobacco use type: Cigarette Years Smoked: 10 years Review of Systems Const Reports fatigue, Denies fever(s) and Denies night sweats ENT Reports change in voice, Denies lip swelling, Denies mouth pain, Denies nasal congestion, Denies nasal discharge and Denies tongue swelling Card Denies chest pain Resp Reports chest congestion, Reports cough, Denies hemoptysis and Reports wheezing GI Denies abdominal pain Musc Denies no additional complaints Neuro Denies Neuro-related abnormal movements Psych Denies no additional complaints Endo Reports fatigue Seymour/Lymph Denies easy bleeding and Denies lymphadenopathy Aller/Immun Denies lip swelling, Denies tongue swelling and Reports wheezing Physical Exam Vital Signs: Last Vital Signs Pulse 77 07/23/25 14:19 BP 130/70 07/23/25 14:19 Pulse Ox 96 07/23/25 14:19 Oxygen Delivery Method Room Air 07/23/25 14:19 BMI result Body Mass Index 26.1 Const General: alert HEENT General nose exam: Abnormal external nose present and Nasal discharge present Eyes Pupils: Equal, round and reactive pupils present Neck Neck: Yes normal visual inspection, Yes full ROM and Yes no lymphadenopathy Chest Chest palpation & inspection: normal inspection of the chest Resp Effort & Inspection: prolonged expiratory phase Auscultation: no crackles, no rales, rhonchi, wheezes and diminished lung sounds Cardio Rate: regular rate Rhythm: regular rhythm Heart sounds: S1 normal heart sound present and S2 normal heart sound present GI Palpation (GI): Soft to palpation and nontender Auscultation: normal bowel sounds General: Yes no CVA tenderness Back/Spine/Pelvis Back: no CVA tenderness Skin General skin exam: rashes and/or lesions noted Neuro Cranial nerves: Yes Equal, round and reactive pupils present Office Procedures Nebulizer Treatment Nebulizer Treatment [id number] RX initial, or Nebulizer Subsequent Treatment Office Meds levalbuterol HCl 1.25 mg/3 mL solution for nebulization Performing Provider: Neal Molina MD [place] [facility] [place] Administered by: Lashay Treadwell LPN on 07/23/25 14:47 Dose Route Admin Location Dispensed Lot Number Expiration Date NDC Wardrobe Image Consultant 1.25 mg inhalation 3 mL [id number] 10/02/26 39198-861-11 [employer] Assessment & Plan Assessment & Plan (1) Asthma: Code(s): J45.909 - Unspecified asthma, uncomplicated Category: Medical Qualifiers: Asthma severity: moderate Asthma persistence: persistent Asthma complication type: with acute exacerbation Qualified Code(s): J45.41 - Moderate persistent asthma with (acute) exacerbation (2) Bronchitis: Code(s): J40 - Bronchitis, not specified as acute or chronic Category: Medical (3) Allergic rhinitis: Code(s): J30.9 - Allergic rhinitis, unspecified Category: Medical Qualifiers: Allergic rhinitis trigger: unspecified Allergic rhinitis seasonality: unspecified Qualified Code(s): J30.9 - Allergic rhinitis, unspecified (4) GERD (gastroesophageal reflux disease): Code(s): K21.9 - Gastro-esophageal reflux disease without esophagitis Category: Medical Qualifiers: Esophagitis presence: without esophagitis Qualified Code(s): K21.9 - Gastro-esophageal reflux disease without esophagitis (5) Pulmonary nodules: Code(s): R91.8 - Other nonspecific abnormal finding of lung field Category: Medical Plan start Zpk start low dose prednisone taper needs a nebulizer for albuterol (provided) Continue Flovent OTIS as needed Reflux diet and pepcid CT chest to address pulmonary nodules-stable Continue Allergy shots Continue allergy therapy F/U 6-8 months Orders: Orders AMB Nebulizer Treatment 07/23/25 J44.9 - Chronic obstructive pulmonary disease, unspecified Medications: New prednisone PO daily; Take 2 tabs daily x 5 days, then 1 tab daily x 5 days 15 tabs 0RF 10 days azithromycin 500 mg PO DAILY 5 tabs 0RF 5 days albuterol sulfate 2.5 mg (3 mL) inhalation Q4H PRN 180 mL 11RF shortness of breath or wheezing 30 days Coding Level of Care Code Est Pt Level 4 (73985) Diagnoses Moderate persistent asthma with acute exacerbation J45.41 Asthma severity: moderate Asthma persistence: persistent Asthma complication type: with acute exacerbation Bronchitis J40 Allergic rhinitis, unspecified seasonality, unspecified trigger J30.9 Allergic rhinitis trigger: unspecified Allergic rhinitis seasonality: unspecified Gastroesophageal reflux disease without esophagitis K21.9 Esophagitis presence: without esophagitis Pulmonary nodules R91.8 CPT Codes Nebulizer Treatment - Nebulizer Treatment, initial or subsequent: [id number]/MDI RX initial, or Nebulizer Subsequent Treatment ([id number]) Time Spent (min) 17
--- OUTSIDE RECORDS SUMMARY | 2025-07-23 15:45 | XMS_ITS | Clinical Summary ---
Author Organization [facility] Address [address] [place] [phone] Phone Care Team Providers Care Offset Press Operator Helper Name Role Phone Kee Ray MD Primary Care Provider [phone] Allergies No known active allergies Medications tamsulosin [...] topic Medical Devices Not on file Insurance [employer] [address] [place], [place] [address]SeatID [facility] eBrisk [facility] [place] [address] [place] [address] [facility] The [employer]CO [employer] [place] [employer] Advance Directives For more information, please contact: [phone] (9AM - 5PM Page/[facility], Saturday-Saturday) * Full Code (Latest Code Status on File) Date Activated Date Inactivated Comments 02/10/2023 11:50 PM Question Answer Comments Code Status Confirmed With: Patient Care Teams Offset Press Operator Helper Relationship Specialty Start Date End Date Kee Ray MD [address] [place] [id number] PCP - General Internal Medicine 08/12/21 Additional Source Comments The information contained in this document represents components of the legal health record. It is not the complete legal health record.[facility]
--- OUTSIDE RECORDS SUMMARY | 2025-07-23 15:45 | XMS_ITS | Encounter Summary ---
Author Organization [facility] Address [address] [place] [address] [place] [phone] Phone Care Team Providers Care Agriculture Engineer Name Role Phone Kee Ray MD Primary Care Provider [phone] Encounter Details Date Type Department Care Team (Late st Contact Info) Description 02/10/2023 Procedure Pass [facility], Ct Scan - [address] [address] Social History Tobacco Use Types Packs/Day Years [...] PM EST documented as of this encounter Plan of Treatment Not on file documented as of this encounter Visit Diagnoses Not on filedocumented in this encounter Care Teams Agriculture Engineer Relationship Specialty Start Date End Date Kee Ray MD [address] [place] [address] PCP - General Internal Medicine 08/12/21 documented as of this encounter Additional Source Comments The information contained in this document represents components of the legal health record. It is not the complete legal health record.[facility]
--- OUTSIDE RECORDS SUMMARY | 2025-07-23 15:45 | XMS_ITS | Clinical Summary ---
Author Organization [facility] Address [address] [place] [address] Care Team Providers Care Pharmacist Technician Name Role Phone Donaldo Rodriguez MD Primary [...] mild pain. 60 tablet 08/14/19 25 Active cetirizine (ZyrTEC) 10 mg tablet TAKE 1 TABLET BY MOUTH EVERY DAY 90 tablet 1 03/22/20 25 Active tamsulosin (FLOMAX) 0.4 mg 24 hr capsule TAKE 1 CAPSULE BY MOUTH DAILY. TAKE 30 MINS AFTER SAME MEAL EVERY DAY. 90 capsule 1 07/09/20 25 Active meloxicam (MOBIC) 15 mg tablet Take 1 tablet (15 mg total) by mouth 1 (one) time each day. 30 each 07/13/20 25 2025 Active famotidine (PEPCID) 20 mg tablet Take 1 tablet (20 mg total) by mouth 1 (one) time each day. 90 tablet 07/20/20 Active tamsulosin (FLOMAX) 0.4 mg 24 hr capsule TAKE 1 CAPSULE BY MOUTH DAILY. TAKE 30 MINS AFTER SAME MEAL EVERY DAY. 90 capsule 1 09/01/19 25 2024 Discontinued famotidine (PEPCID) 20 mg tablet TAKE 1 TABLET (20 MG TOTAL) BY MOUTH ONE TIME EACH DAY 90 tablet 04/27/20 25 2024 Discontinued(R chely) Active Problems Problem Noted Date Diagnosed Date [...] improved Plan continue Unasyn, elevation Chronic bronchitis 09/16/2020 Allergic rhinitis 07/10/2018 Condyloma acuminatum 04/16/2018 Overview (06/30/2024): Condyloma acuminatum 04/22 scrotum Dyslipidemia 11/19/2017 Overview (06/30/2024): LDL cholesterol 28, 12/01/2015 Varicose veins of both lower extremities 018 Asthma 06/20/2016 Eczema 09/15/2013 Vocal cord nodule 09/15/2013 Abdominal wall abscess 09/15/2013 Overview (06/30/2024): I&D x2, [facility] Encounters Date Type Department Care Team Description 07/13/2025 9:45 AM EST Consult Orthopedic Surgery - [place] [address] [place] [phone] Kingsley Allred DPM PAD (peripheral artery disease) ([facility] V24) (Primary Dx); Pain in both feet; Arthritis of both feet 05/27/2025 10:00 AM EDT Clinical Support [address] [address] Visit for suture removal (Primary Dx) 05/13/2025 1:00 PM EDT Procedure visit [address] [address] Reji Colvin, DO Foreign body in right forearm, initial encounter (Primary Dx) 05/11/2025 11:30 AM EDT Consult [address] [address] Reji Colvin, DO Foreign body in right forearm, initial encounter (Primary Dx) 05/06/2025 Telephone Adult Medicine [address] [phone] Radha Monroy PA 05/05/2025 Results Follow-Up Adult Medicine [address] [phone] Donaldo Rodriguez MD 05/04/2025 12:09 PM EDT - 05/04/2025 11:59 PM EDT Hospital Encounter [address] [phone] Left foot pain Discharge Disposition: Home or Self Care 05/04/2025 11:15 AM EDT Office Visit Adult Medicine [address] [phone] Radha Monroy PA Benign prostatic hyperplasia with nocturia (Primary Dx); Mild persistent asthma without complication; Allergic rhinitis, unspecified seasonality, unspecified trigger; Venous insufficiency of both lower extremities; Left foot pain; Foreign body (FB) in soft tissue; Encounter for screening for lipid disorder; Screening PSA (prostate specific antigen) from Last 3 Months Immunizations Immunization Administration Dates Next Due Influenza trivalent, 0.5mL, [...] Surgery Date Site/Laterality Comments OTHER SURGICAL HISTORY 1983 PROCEDURE: ---- OTHER ----; COMMENT: Excision of vocal cord nodule OTHER SURGICAL HISTORY 2007 PROCEDURE: ABSCESS, SOFT TISSUE DEBRIDEMENT; COMMENT: abdominal abscess MRSA OTHER SURGICAL HISTORY PROCEDURE: HISTORICAL MELANOMA COLONOSCOPY VEIN LIGATION AND STRIPPING HERNIA REPAIR Medical History Medical History Date Comments Eczema 09/15/2013 DX:Eczema Vocal cord nodule 09/15/2013 DX:Vocal cord nodule Abdominal wall abscess 09/15/2013 DX:Abdomi nal wall abscess; COMMENT: I&D x2, [facility] Actinic keratosis 03/27/2016 DX:Actinic ker atosis [...] actinic keratoses; COMMENT: Actinic keratosis 03/20 left jainism Vocal cord nodule Family History Medical History [...] Years Used Date Smoking Tobacco: Former Cigarettes 1 Q uit: 08/05/2002 Smokeless Tobacco: Former Tobacco Cessation:Counseling Given: Not Answered Alcohol Use Standard Drinks/Week Comments Not Currently 3.3 (1 standard drink = 0.6 oz p ure alcohol) Interpersonal Safety Answer Date Record ed Physical Abuse Unrecognized value 08/14/2024 Verbal Abuse Unrecognized value 08/14/2024 Sex and Gender Information Value Date Recorded Sex Assigned at Male 07/21/2024 10:39 AM EST Legal Sex Male 6:31 PM EST Gender Identity Male 07/21/2024 10:39 AM EST Sexual Orientation Straight 07/21/2024 10 :39 AM EST Last Filed Vital Signs Vital Sign Reading Time Taken Comments Blood Pressure 119/80 05/13/2025 1:14 PM EDT Pulse 73 05/13/2025 1:14 PM EDT Temperature 36.3 C (97.3 F) 05/11/2025 11:29 AM EDT Respiratory Rate 15 05/04/2025 11:22 AM EDT Oxygen Saturation 95% 05/04/2025 11:22 AM EDT Inhaled Oxygen Concentration - - Weight 79.4 kg (175 lb) 05/13/2025 1:14 PM EDT Height 177.8 cm (5' 10 ) 05/13/2025 1:14 PM EDT Body Mass Index 25.11 05/13/2025 1:14 PM EDT Plan of Treatment Upcoming Encounters Date Type Department Care Team (Late st Contact Info) Description 08/17/2025 10:00 AM EST Consult Vascular Surgery - [place] [address] [facility] [address] [place] [address] Briana Bo PA [address] [place] [address] 08/19/2025 8:30 AM EST Ancillary Procedure [facility] - [facility] [address] [place] [phone] 08/23/2025 10:45 AM EST Consult Orthopedic Surgery - [place] [address] [facility] [address] [place] [phone] Kingsley Allred, DPM [address] [address] 08/30/2025 10:30 AM EST Office Visit Adult Medicine [facility] [address] [place] [phone] Radha Monroy PA [address] [place] [phone] Health Maintenance Due Date Last Done Comments Zoster Vaccines (1 of 2) 1977 RSV Immunization Adult Patients (1 - Risk 50-74 years 1-dose series) 2008 Pneumococcal Vaccine: 50+ Years (2 of 2 - PCV) 11/19/2018 11/19/2017 Social Influencers of Health Screening 07/14/2022 Medicare Annual Wellness Visit 01/14/2025 01/15/2024 COVID-19 Vaccine ( season) 2025 04/16/2022, 12/06/2021, 06/27/2021, Additional history exists Influenza Vaccine (#1) 2025 05/25/2022, 2016 Falls Risk Assessment 08/14/2025 08/14/2024, 024 Cholesterol Screening (Lipid Panel) 05/04/2030 05/04/2025, 01/15/2024, 01/15/2024 DTaP,Tdap,and Td Vaccines (3 - [...] this topic Medical Devices Implanted Type Area Personal Lines Insurance Agent Device Identifier Shelf Expiration Date Model / Serial / Lot Mesh Surg 3d Right Xlg 6.7x4.8 - [id number] - [id number] Implanted:Qty: 1 on 08/14/2024 by Reji Colvin DO at [facility] Surgical Mesh Sling Implants Right: Abdomen CR BARD - DAVOL DIV 10/30/2028 [id number] / [id number] / [id number] Procedures Procedure Name Priority Date/Time Associated Diagnosis Comments SUTURE REMOVAL Routine 05/27/2025 10:32 AM EDT Visit for suture removal TISSUE EXAM Routine 05/13/2025 1:32 PM EDT Foreign body in right forearm, initial encounter XR FOOT 3+ VIEWS LEFT Routine 05/04/2025 12:15 PM EDT Left foot pain CBC WITH AUTO DIFFERENTIAL Routine 05/04/2025 12:05 PM EDT Left foot pain LIPID PANEL WITH REFLEX TO DIRECT LDL Routine 05/04/2025 12:05 PM EDT Encounter for screening for lipid disorder PROSTATE SPECIFIC ANTIGEN SCREEN Routine 05/04/2025 12:05 PM EDT Screening PSA (prostate specific antigen) SEDIMENTATION RATE Routine 05/04/2025 12 :05 PM EDT Left foot pain C-REACTIVE PROTEIN Routine 05/04/2025 12 :05 PM EDT Left foot pain URIC ACID Routine 05/04/2025 12:05 PM EDT Left foot pain CBC AND DIFFERENTIAL Routine 05/04/2025 12:05 PM EDT Left foot pain HM COLONOSCOPY Routine 05/20/2024 HM ABDOMINAL AORTIC ANEURYSM SCRREN Routine 02/20/2024 HM DEPRESSION SCREENING Routine 01/15/2024 HM FALLS RISK ASSESSMENT Routine 01/15/2024 HM HEPATITIS C SCREENING Routine 12/01/2015 from Last 3 Months or Most Recently Relevant to Health Maintenance Results * SUTURE REMOVAL (05/27/2025 10:32 AM EDT) Odalys Muhammad MA - 05/27/2025 10:32 AM EDT Odalys Lugo MA 05/27/2025 10:33 AM Suture Removal Date/Time: 05/27/2025 10:32 AM Performed by: Odalys Lugo MA Authorized by: Reji Colvin DO Procedure details: Wound appearance: No signs of infection, good wound healing and clean Number of sutures removed: 3 Post-procedure details: Post-removal: No dressing applied Procedure completion: Tolerated Reji Colvin DO IN CLINIC/BEDSIDE ORDERABLES F inal Result * Tissue exam (05/13/2025 1:32 PM EDT) Final Diagnosis Forearm, Right, foreign body with soft tissue: -FOREIGN BODY (GROSS DIAGNOSIS) -Scar and reactive changes associated with foreign material (microscopic diagnosis) 05/17/2025 10:44 AM EDT [facility]) [facility] at 1044 EDT Clinical Information Foreign body and right forearm, initial encounter (S50.851A) 05/17/2025 10:44 AM EDT [facility] Gross Description A. Forearm, Right, foreign body: Labeled forearm R . Received in formalin is an unoriented, 1.1 x 0.2 cm farias-white skin ellipse excised to a depth of 0.3 cm. The subcutaneous tissue is disrupted and on sectioning contains hard brown material within a 0.4 cm in greatest diameter cyst lining. The material measures up to 0.2 cm in greatest diameter. A digital photograph is taken. The material is removed and submitted for gross examination only. Due to the disruption, the margins are not inked. Specimen is submitted in entirety in one cassette, two pieces. TS 05/17/2025 10:44 AM EDT [facility] Disclaimer Unless otherwise specified, all tissue is 10% NB formalin fixed and paraffin embedded. 05/17/2025 10:44 AM EDT [facility] Tissue Structure of right forearm / Unknown Non-blood Collection / Unknown 05/13/2025 1:32 PM EDT 05/13/2025 1:39 PM EDT us Reji Colvin DO LAB PATHOLOGY ORDERABLES Final Result [facility] [address] [place] [address], * XR Foot 3+ Views Left (05/04/2025 12:15 PM EDT) Anatomical Region Laterality Modality Lower Extremities, Foot Left Radiogra phic Imaging 05/04/2025 5:38 PM EDT Narrative 05/04/2025 5:40 PM EDT Left foot, 3 views. History pain laterally. There is no evidence of fractures or dislocations. There are moderate degenerative changes in the first metatarsophalangeal joint. There is small inferior calcaneal spur. There is hammertoe deformity of multiple toes. Conclusions: Degenerative changes in the first metatarsophalangeal joint. Small calcaneal spur. Hypertrophy deformity of multiple toes. -------- FINAL REPORT -------- Dictated By: Neelam Marina Dictated Date: 05/04/2025 17:38 ET Assigned Physician: Neelam Marina Reviewed and Electronically Signed By: Neelam Marina Signed Date: 05/04/2025 17:40 ET Workstation ID: [id number] Transcribed By: Self Edit Transcribed Date: 05/04/2025 17:38 ET Procedure Note Neelam Marina MD - 05/04/2025 Left foot, 3 views. History pain laterally. There is no evidence of fractures or dislocations. There are moderatedegenerative changes in the first metatarsophalangeal joint. There issmall inferior calcaneal spur. There is hammertoe deformity of multipletoes. Conclusions: Degenerative changes in the first metatarsophalangeal joint.Small calcaneal spur. Hypertrophy deformity of multiple toes. -------- FINAL REPORT -------- Dictated By: Neelam Marina Dictated Date: 05/04/2025 17:38 ET Assigned Physician: Neelam Marina Reviewed and Electronically Signed By: Neealm Marina Signed Date: 05/04/2025 17:40 ET Workstation ID: [id number] Transcribed By: Self Edit Transcribed Date: 05/04/2025 17:38 ET us Radha Porfirio MIRAMONTES IMG XR PROCEDURES Final Result * Prostate specific antigen screen (05/04/2025 12:05 PM EDT) PSA 0.31 0.00 - 4.00 ng/mL LAB CHEMISTRY METHOD 05/04/2025 6:11 PM EDT [facility] Blood Venous blood specimen / Unknown Venipuncture / Unknown 05/04/2025 12:05 PM EDT 05/04/2025 12:05 PM EDT Narrative [facility] - 05/04/2025 6:11 PM EDT The Siemens Advia Siperianaur Chemiluminescent Immunoassay is used. Results obtained with different assay methods or kits cannot be used interchangeably. Results cannot be interpreted as absolute evidence of the presence or absence of malignant disease. us Radha Monroy PA LAB BLOOD ORDERABLES Final Resul t Performing Organization Address City/[facility]/ZIP Co de Phone Number [facility] [address] [place] [address], [place] [phone] * (ABNORMAL) Lipid panel with reflex to direct LDL (05/04/2025 12:05 PM EDT) Cholesterol 137 0 - 200 mg/dL LAB CHEMISTRY METHOD 05/04/2025 3:48 PM EDT [facility] Triglycerides 128 0 - 150 mg/dL LAB CHEMISTRY METHOD 05/04/2025 3:48 PM EDT [facility] HDL 29(L) >=40 mg/dL LAB CHEMISTRY METHOD 05/04/2025 3:48 PM EDT [facility] LDL Calculated 82 0 - 100 mg/dL LAB CHEMISTRY METHOD 05/04/2025 3:48 PM EDT [facility] Comment:Estimated LDL Calcul ated using equation: Total cholesterol - HDL cholesterol - (Triglycerides/5) VLDL Cholesterol Ke 25.6 mg/dL LAB CHEMISTRY METHOD 05/04/2025 3:48 PM EDT [facility] Non HDL Chol. (LDL+VLDL) 108 <145 mg/dL LAB CHEMISTRY METHOD 05/04/2025 3:48 PM EDT [facility] Chol/HDL Ratio 4.7(H) 0.0 - 4.4 LAB CHEMISTRY METHOD 05/04/2025 3:48 PM EDT [facility] Blood Venous blood specimen / Unknown Venipuncture / Unknown 05/04/2025 12:05 PM EDT 05/04/2025 12:05 PM EDT us Radha Monroy PA LAB BLOOD ORDERABLES Final Resul t Performing Organization Address [facility]/ZIP Co de Phone Number [facility] [address] [place] [address], [place] [phone] * (ABNORMAL) CBC auto differential (05/04/2025 12:05 PM EDT) [facility] WBC 6.4 4.8 - 10.8 K/mcL LAB HEMETOLOGY METHOD 05/04/2025 2:16 PM EDT [facility] RBC 5.00 4.50 - 5.50 M/mcL LAB HEMETOLOGY METHOD 05/04/2025 2:16 PM EDT [facility] Hemoglobin 16.2 13.5 - 17.5 g/dL LAB HEMETOLOGY METHOD 05/04/2025 2:16 PM EDT [facility] Hematocrit 48.0 42.0 - 54.0 % LAB HEMETOLOGY METHOD 05/04/2025 2:16 PM EDT [facility] MCV 97.0 79.0 - 98.0 FL LAB HEMETOLOGY METHOD 05/04/2025 2:[facility] MCH 32.7(H) 27.0 - 32.0 pcg LAB HEMETOLOGY METHOD 05/04/2025 2:16 PM EDT [facility] MCHC 33.8 32.0 - 37.0 g/dL LAB HEMETOLOGY METHOD 05/04/2025 2:16 PM [facility] RDW 13.0 11.0 - 15.0 % LAB HEMETOLOGY METHOD 05/04/2025 2:16 PM EDT [facility] Platelets 283 130 - 400 K/mcL LAB HEMETOLOGY METHOD 05/04/2025 2:16 PM EDT [facility] MPV 11.6(H) 7.0 - 11.0 FL LAB HEMETOLOGY METHOD 05/04/2025 2:16 PM EDT [facility] NRBC 0.0 <1.0 % LAB HEMETOLOGY METHOD 05/04/2025 2:16 PM EDT [facility] NRBC Absolute 0.00 <0.10 K/mcL LAB HEMETOLOGY METHOD 05/04/2025 2:16 PM [facility] Neutrophils Relative 61.1 % LAB HEMETOLOGY METHOD 05/04/2025 2:16 PM [facility] Lymphocytes Relative 19.8 % LAB HEMETOLOGY METHOD 05/04/2025 2:16 PM [facility] Monocytes Relative 16.6 % LAB HEMETOLOGY METHOD 05/04/2025 2:16 PM [facility] Eosinophils Relative 1.1 % LAB HEMETOLOGY METHOD 05/04/2025 2:16 PM [facility] Basophils Relative 0.5 % LAB HEMETOLOGY METHOD 05/04/2025 2:16 PM [facility] Immature Granulocytes Relative 0.9 % LAB HEMETOLOGY METHOD 05/04/2025 2:16 PM [facility] Neutrophils Absolute 3.91 1.50 - 7.00 K/mcL LAB HEMETOLOGY METHOD 05/04/2025 2:16 PM [facility] Lymphocytes Absolute 1.27 1.00 - 5.00 K/mcL LAB HEMETOLOGY METHOD 05/04/2025 2:16 PM [facility] Monocytes Absolute 1.06(H) 0.20 - 1.00 K/mcL LAB HEMETOLOGY METHOD 05/04/2025 2:16 PM [facility] Eosinophils Absolute 0.07 0.00 - 0.50 K/mcL LAB HEMETOLOGY METHOD 05/04/2025 2:16 PM [facility] Basophils Absolute 0.03 0.00 - 0.20 K/mcL LAB HEMETOLOGY METHOD 05/04/2025 2:16 PM [facility] Immature Granulocytes Absolute 0.06(H) 0.00 - 0.03 K/mcL LAB HEMETOLOGY METHOD 05/04/2025 2:16 PM EDT [facility] Blood Venous blood specimen / Unknown Venipuncture / Unknown 05/04/2025 12:05 PM EDT 05/04/2025 12:05 PM EDT us Radha Monroy PA LAB BLOOD ORDERABLES Final Resul t Performing Organization Address City/[facility]/ZIP Co de Phone Number [facility] [address] [place] [address], [place] [phone] * Sedimentation rate (05/04/2025 12:05 PM EDT) Sed Rate 9 0 - 20 mm/hr LAB HEMETOLOGY METHOD 05/04/2025 2:22 PM EDT [facility] Blood Venous blood specimen / Unknown Venipuncture / Unknown 05/04/2025 12:05 PM EDT 05/04/2025 12:05 PM EDT us Radha Monroy PA LAB BLOOD ORDERABLES Final Resul t Performing Organization Address [facility] Co de Phone Number [facility] [address] [place] [address], [place] [phone] * C-reactive protein (05/04/2025 12:05 PM EDT) C-Reactive Protein <0.29 <=0.50 mg/dL LAB CHEMISTRY METHOD 05/04/2025 3:48 PM EDT [facility] Blood Venous blood specimen / Unknown Venipuncture / Unknown 05/04/2025 12:05 PM EDT 05/04/2025 12:05 PM EDT us Radha Monroy PA LAB BLOOD ORDERABLES Final Resul t Performing Organization Address [facility]/ZIP Co de Phone Number [facility] [address] [place] [address], [place] [phone] * Uric acid (05/04/2025 12:05 PM EDT) [facility] Uric Acid 6.6 3.7 - 9.2 mg/dL LAB CHEMISTRY METHOD 05/04/2025 3:48 PM EDT [facility] Blood Venous blood specimen / Unknown Venipuncture / Unknown 05/04/2025 12:05 PM EDT 05/04/2025 12:05 PM EDT Radha Porfirio MIRAMONTES LAB BLOOD ORDERABLES Final Resul t [facility] [address] [place] [address], [place] [phone] * Colonoscopy (05/20/2024) [facility] Colonoscopy no interpretation , abstracted Anatomical Region Laterality Modality Other Historical Provider HEALTH MAINTENANCE Final Result * Abdominal Aortic Aneurysm Screen (02/20/2024) [facility] Abdominal Aortic Aneurysm (AAA) Screening abstracted Anatomical Region Laterality Modality Other Result [facility] Historical Provider HEALTH MAINTENANCE Final Result * Falls Risk Assessment (01/15/2024) [facility] Falls Risk Assessment abstracted Result [facility] Historical Provider HEALTH MAINTENANCE Final Result * Depression Screening (01/15/2024) [facility] Depression Screening abstracted Result [facility] Historical Provider HEALTH MAINTENANCE Final Result * Hepatitis C Screening (12/01/2015) [facility] Hepatitis C Screening abstracted Result [facility] Historical Provider HEALTH MAINTENANCE Final Result from Last 3 Months or Most Recently Relevant to Health Maintenance Insurance MEDICARE [place]ICAID [place] Care Teams Pharmacist Technician Relationship Specialty Start Date End Date Donaldo Rodriguez MD [address] [place] [address] PCP - General Internal Medicine 10/09/24
--- OUTSIDE RECORDS SUMMARY | 2025-07-23 15:45 | XMS_ITS | Encounter Summary ---
Author Organization [facility] Address [address] [facility] [address] [place] [address] Phone Care Team Providers Care Channel Installer Name Role Phone Kee Ray MD Primary Care Provider [phone] Encounter Details Date Type Department Care Team (Late st Contact Info) Description 08/12/2021 Procedure Pass [facility], Ct Scan - [address] [address] Social History Tobacco Use Types Packs/Day Years [...] on filedocumented in this encounter Care Teams Channel Installer Relationship Specialty Start Date End Date Kee Ray MD [address] [place] [phone] PCP - General Internal Medicine 08/12/21 documented as of this encounter Additional Source Comments The information contained in this document represents components of the legal health record. It is not the complete legal health record.[facility]
--- OUTSIDE RECORDS SUMMARY | 2025-07-23 15:45 | XMS_ITS | Encounter Summary ---
Author Organization [facility] Address [address] [facility] [address] [place] [address] Phone Care Team Providers Care Transit Survey Worker Name Role Phone Kee Ray MD Primary Care Provider [phone] Encounter Details Date Type Department Care Team (Late st Contact Info) Description 08/12/2021 Procedure Pass [facility], Ct Scan - [address] [address] Social History Tobacco Use Types Packs/Day Years [...] on filedocumented in this encounter Care Teams Transit Survey Worker Relationship Specialty Start Date End Date Kee Ray MD [address] [place] [id number] PCP - General Internal Medicine 08/12/21 documented as of this encounter Additional Source Comments The information contained in this document represents components of the legal health record. It is not the complete legal health record.[facility]
--- OUTSIDE RECORDS SUMMARY | 2025-07-23 15:45 | XMS_ITS | Data Portability ---
Author Organization KULWINDER Camacho s, [address] Address [address] [place] [address] Assessment No assessment recorded. Plan of Treatment Reminders Order Date Submit Date Provider Last Modified By Organization Details Last Modified Time Details Appointments None recorded. Lab rapid strep group A, throat 2022 023 [email or web address] [facility] [place], [address], 15:17:10 streptococc us group A, culture, throat 2022 023 PELSOR [facility] ([facility], [address] [place] [address], [place], [address], 08:08:09 Referral emergency medicine referral 2022 023 [email or web address] 1 [facility], [address] [place], [address], 14:38:16 Procedures None recorded. Surgeries None recorded. Imaging None recorded. Medication Orders amoxicillin 500 mg tablet 2022 023 PELSOR [id number], [address] [place], [address], 12:19:06 Patient TargetsNo targets recorded. Patient Instructions Encounter Date Encounter Id Patient Instructions Last Modified By Organization Details Last Modified Time 11/07/2022 [id number] sore throat: car e instructions [email or web address] Not available 11/07/2022 15:17:10 strep throat: care instructions [email or web address] Not available 11/07/2022 15:17:10 Rest. Drink plenty of fluids. Gargle with warm salty water several times daily. Take the antibiotic as prescribed. Obtain a new toothbrush in 2 days. See printed instructions. You will be contacted when your lab report returns. Follow-up with your doctor if no improvement in a few days. Seek Emergency Medical evaluation for any worsening symptoms. [email or web address] Not available 11/07/2022 15:18:29 02/06/2023 [id number] You have been advised to go now to [facility] for further evaluation. The ER has been notified of your impending arrival. [email or web address] Not available 02/06/2023 13:11:11 Reason for Referral Emergency Medicine Referral for Cellulitis of left lower limb Significant cellulitis with infected wounds from cat bites LLE Referring Physician: Nicole Knox, Urgent Care, Encounter Date: 02/06/2023 Results Created Date Observation Date Name Description Value Unit Range Abnormal Flag Note LastModifiedBy Organization Detail LastModifiedTime 11/08/1911/10/2022 BETA STREP GP A CULTU RE beta strep gp A culture NEGATI VE Refer ence Range : Negat suad Not Available [facility] ([facility]) [address] [facility], [place], [address], 11/10/2022 08:08:09 11/08/1911/07/2022 rapid strep group A, throa t Unknown Analyte Normal = Negati ve Not Available [facility] [address], [address], 11/07/2022 14:21:58 11/08/19 23 11/07/2022 rapid strep group A, throa t Unknown Analyte negati ve Not Available [address] [address] [place], [address], 11/07/2022 14:21:58 Result Notes None recorded. Problems Name Problem SNOMED Code Status Onset Date Resolution Date Notes Provider Name and Address Organization Details Recorded Time Asthma 939841518 Active 023 KULWINDER Feliz - [facility] 14:19:25 Large prostate 516885190 Active 023 NOE conrad PA - [facility] 14:19:37 Acid reflux 281741543 Active 023 NOE conrad PA - [facility] 14:19:53 Problem Notes None recorded. Procedures Surgical History Date Name Laterality Status Provider Name and Address Organization Details Recorded Time varicose vein operation completed NOE SCHROEDER [facility] 11/07/2022 14:21:49 Imaging Results None recorded. Procedure Notes None recorded. Medical Equipment None Reported. Allergies No known drug allergies Medications Name Sig Start Date Stop Date Status Note LastModified by Organization Details LastModified Time amoxicillin 500 mg capsule TAKE 1 CAPSULE BY MOUTH EVERY 12 HOURS FOR 10 DAYS 02/06 completed Not Available Not Available Not Available cetirizine 10 mg tablet TAKE 1 TABLET BY MOUTH EVERY DAY active Not Available Not Available No t Available azithromyci n 250 mg tablet 02/06 completed Not Available Not Available Not Available amoxicillin 500 mg tablet Take 1 tablet every 12 hours by oral route for 10 days. 02/06 completed Not Available Not Available Not Available famotidine 20 mg tablet TAKE 1 TABLET BY MOUTH EVERY DAY active Not Available Not Available No t Available tamsulosin 0.4 mg capsule TAKE 1 CAPSULE BY MOUTH DAILY. TAKE 30 MINS AFTER SAME MEAL EVERY DAY. active Not Available Not Available No t Available IBU 400 mg tablet Take 1 tablet every 4 hours by oral route. active Not Available Not Available No t Available azithromyci n 500 mg tablet TAKE 1 TABLET BY MOUTH EVERY DAY FOR 5 DAYS 11/07 completed Not Available Not Available Not Available Flovent HFA 220 mcg/actuati on aerosol inhaler TAKE 2 PUFF INHALATIO NS 2 TIMES DAILY active Not Available Not Available No t Available Brigette Walden [facility] spacer USE DIRECTED active Not Available Not Available No t Available Vitals Date Recorded Body height Body mass index (BMI) Body weight Body temperature Respiratory rate Heart rate Oxygen saturation Systolic And Diastolic Provider Name and Address Organization Details Last Updated DateTime 3 177.8 cm 24.5 kg/m2 95239.3 g 97.9 [degF] 18 /min 60 /min 98 % 131/85 mm[Hg] NOE Bah PA - [facility] 3 14:23:46 Date Recorded Body height Body mass index (BMI) Body weight Pain severity - 0-10 verbal numeric rating [Score] - Reported Oxygen saturation Heart rate Respiratory rate Body temperature Systolic And Diastolic Provider Name and Address Organization Details Last Updated DateTime 3 177.8 cm 24.4 kg/m2 60484.7 g 9 98 % 92 /min 16 /min 97.8 [degF] 116/81 mm[Hg] SLY CORTEZ PA - [facility] 3 12:22:08 Social History Question Answer Notes LastModified by [email or web address] ion Details LastModified Time Tobacco Smoking Status Former Smoker NOE SCHROEDER anamaria PA - [facility] 11/07/2022 14:20:25 When Did You Quit Smoking? 11-15yearssi [facility] Information not available 02/06/2023 What Is Your Water Source? City Information not available 11/07/2022 What Is Your Heat Source? Other Information not available 11/07/2022 Have You Had Direct Contact, Or Contact During Intimacy, With Monkeypox Rash, Scabs, Or Body Fluids From A Person With Monkeypox? No Information not available 11/07/2022 Have You Recently Traveled Abroad? No Information not available 11/07/2022 Sex: Unknown Functional Status Question Answer Note LastModified by [email or web address] ion Details LastModified Time Do you use any illicit or recreational drugs? No Information not available 11/07/2022 Do you or have you ever used any other forms of tobacco or nicotine? No Information not available 11/07/2022 What is your level of alcohol consumption? Occasional Information not available 11/07/2022 Mental Status None recorded. Family History Relationship Description Onset Age of this Age Resolved Age Notes LastModified by Organization Details LastModified Time Father No current problems or disability Not available 14:20:12 Mother No current problems or disability Not available 14:20:12 Medical History No medical history recorded. Immunizations Vaccine Type Date Status Note Provider Nam e and Address Organization Details Recorded Time Influenza, recombinant, quadrivalent, PF 2 completed SLY DIEGO null, PA - [facility] 02/06/2023 12:18:16 COVID-19, mRNA, LNP-S, PF, 100 mcg/0.5mL dose or 50 mcg/0.25mL dose 1 completed SLY DIEGO null, PA - [facility] 02/06/2023 12:18:16 COVID-19, mRNA, LNP-S, PF, 100 mcg/0.5mL dose or 50 mcg/0.25mL dose 2 completed SLY DIEGO null, PA - [facility] 02/06/2023 12:18:16 COVID-19, mRNA, LNP-S, PF, 100 mcg/0.5mL dose or 50 mcg/0.25mL dose 1 completed SLY DIEGO null, PA - [facility] 02/06/2023 12:18:16 COVID-19, mRNA, LNP-S, PF, 100 mcg/0.5mL dose or 50 mcg/0.25mL dose 1 completed SLY DIEGO null, PA - [facility] 02/06/2023 12:18:16 COVID-19, mRNA, LNP-S, bivalent, PF, 50 mcg/0.5 mL or 25mcg/0.25 mL dose 2 completed SLY DIEGO null, PA - [facility] 02/06/2023 12:18:16 pneumococcal polysaccharide PPV23 8 completed SLY DIEGO null, PA - [facility] 02/06/2023 12:18:16 Tdap 6 completed SLY DIEGO null, PA - [facility] 02/06/2023 12:18:16 Influenza, split virus, trivalent, preservative 7 completed SLY DIEGO null, PA - [facility] 02/06/2023 12:18:16 Td (adult), 2 Lf tetanus toxoid, preservative free, adsorbed 1 completed SLY CORTEZ KULWINDER conrad [facility] 02/06/2023 12:18:16 Past Encounters Encounter ID Performer Location Encounter Start Date Encounter Closed Date Diagnosis/Indication Diagnosis SNOMED-CT Code Diagnosis ICD10 Code Diagnosis IMO Codes Diagnosis Note [id number] [facility] [address] [place] [address] 11/26/2020 11:55:59 11/26/2020 13:21:33 [id number] Nicole Knox [place] [address] [address] [address] 11/07/2022 14:11:47 11/07/2022 15:25:35 Acute pharyngitis 375613300 J02.9 [id number] Nicole Knox [place] [address] [address] [address] 02/06/2023 12:01:59 02/06/2023 13:13:47 Cellulitis of left lower limb 0104387822 8262223 L03.116 Cat bite 910748208 W55.0 1XA Health Concerns Section Related Observation LastModified by Organization Detai ls LastModified Time None Recorded Concern Status LastModified by Organization Details LastModified Time None Recorded Advance Directives Directive None Recorded Payers Insurance Date Sequence Insurance Name Policy Number Policy Campos Covered Member ID Campos Member ID Guarantor Name 02/06/2023 1 [facility] - [facility] (MEDICAID REPLACEMENT - HMO) [facility] Stevenson Gravini [id number] Stevenson Gravini Notes Date Note Type Note Provider Name and Address Organization Details Recorded Time 3 text/html Sore throatReported by PatientSore ThroatFor source of patient information, patient reportsinformation obtained from patientandpatient arrived at urgent care ambulatory. For location, patient reportsthroat. For severity, patient reportsmoderate. For quality, patient reportshurts to swallow. For onset/timing, patient reports3 days. For associated symptoms, patient reportsno cough,no sputum production,no shortness of breath,no wheezing,no sinus pain,no vomiting,no nausea, andno hoarseness. For context, patient reportsno sick contacts.62 year old male presenting for evaluation of a sore throat with swollen painful neck glands getting worse for the past 3 days. No fever, chills, ear pain, nasal congestion, cough, chest pain, shortness of breath, headache, rash, stiff neck, GI symptoms or body aches. Nicole Knox MD [address] [place], [address], [place] - [facility] 11/07/2022 15:23:31 3 text/html Skin Redness UCReported by PatientSkin Redness UCFor quality, patient reportspainful,burning,e rythematous, andwarm. For severity, patient reportsmoderate. For alleviating factors, patient reportsnothing gives relief. For symptoms, patient reportsfeverandswellingb ut reportsno nauseaandno vomiting. For location, patient reportsleft legs. For duration, patient reports4 days. For onset, patient reportsgradual onset. For aggravating factors, patient reportsstanding.62 year old male presenting for evaluation of progressive pain, redness and swelling of his left lower leg after getting bit by a cat 4 days ago. The cat is a rescue which he has had for about 2 weeks - cat's immunization status is unknown. The patient reports he accidentally stepped on the cat when it attacked him. The patient has some wounds on his leg that have had some bleeding and drainage. He has felt feverish and chilly and had some transient nausea yesterday. No headache, vomiting, stiff neck, respiratory symptoms, abdominal pain or diarrhea. No numbness or weakness of the extremity but the pain is worse with palpation and walking. His tetanus immunization is up to date. Nicole Knox MD [address] [place], [address], [place] - [facility] 02/06/2023 13:54:41
== END 2025-07-23 15:29 | disposition home or self-care (01) ==
LOC: HO.HPS 14:12
PROVIDERS: PCP Internal Medicine; Visit Provider Hospitalist
DX: J45.41 Moderate persistent asthma with (acute) exacerbation (principal); J40 Bronchitis, not specified as acute or chronic; J30.9 Allergic rhinitis, unspecified; K21.9 Gastro-esophageal reflux disease without esophagitis; R91.8 Other nonspecific abnormal finding of lung field
CPT/HCPCS: 99214

== ENCOUNTER → 2025-07-23 14:11 | Outpatient (BNVA) | payer MEDICARE, MEDICAID, SELFPAY | PROVIDERS: PCP Internal Medicine; Visit Provider Hospitalist | DX: J45.41 Moderate persistent asthma with (acute) exacerbation (principal); R91.8 Other nonspecific abnormal finding of lung field; J30.9 Allergic rhinitis, unspecified; Z87.891 Personal history of nicotine dependence; J40 Bronchitis, not specified as acute or chronic | CPT/HCPCS: 94640; 99212 ==